=== PATIENT | female | born 1980 | race African-American/Black ===

== ENCOUNTER 2024-06-25 06:36 | Outpatient (REF) | payer OTHER, SELFPAY | END 2024-06-25 06:37 | disposition home or self-care (01) | LOC: HO.UMASIMG 06:36 | PROVIDERS: Visit Provider Family Medicine | DX: Z13.89 Encounter for screening for other disorder (principal) ==

== ENCOUNTER 2024-09-17 08:31 | Outpatient (REF) | payer OTHER, SELFPAY ==
--- OUTSIDE RECORDS SUMMARY | 2024-09-17 08:51 | XMS_ITS | Encounter Summary ---
Author Organization [facility] Address [address] [place] [address] Care Team Providers Care City Planner Name Role Phone Quang Arauz MD Primary Care Provider [phone] Breann Eugene MD Primary Care Provider Unavailab le Unknown Pcp, Non Rmg Primary Care Provider Unava ilable Encounter Details Date Type Department Care Team ([facility] st Contact Info) Description 01/18/2017 Orders Only [facility] Adult Medicine [address] [place] [phone] Quang Arauz MD [address] [place] [id number] Social History Tobacco Use Types Packs/Day Years Used Date Smoking Tobacco: Never Smokeless Tobacco: Never Alcohol Use Standard Drinks/Week Comments No 0 (1 standard drink = 0.6 oz pur e alcohol) Comments No Sex and Gender Information Value Date Recorded Sex Assigned at Not on file Legal Sex Female 3:16 PM EDT Gender Identity Not on file Sexual Orientation Not on file documented as of this encounter Plan of Treatment Not on file documented as of this encounter Procedures * Due to [place] state law, this organization might not be sharing negative HIV tests. Procedure Name Priority Date/Time Associated Diagnosis Comments ERYTHROCYTE SEDIMENTATION RATE (ESR) Routine 01/18/2017 10:38 AM EDT Arthralgia, unspecified joint CBC INCLUDES DIFFERENTIAL AND PLATELET COUNT Routine 01/18/2017 10:38 AM EDT Arthralgia, unspecified joint COMPREHENSIVE METABOLIC PANEL WITH GFR Routine 01/18/2017 10:38 AM EDT Arthralgia, unspecified joint BORRELIA BURGDORFERI AB (LYME), EIA WITH REFLEX IGG, IGM WB Routine 01/18/2017 10:36 AM EDT Arthralgia, unspecified joint RHEUMATOID FACTOR, SERUM Routine 017 10:36 AM EDT Arthralgia, unspecified joint C-REACTIVE PROTEIN (CRP) - INFLAMMATION Routine 01/18/2017 10:36 AM EDT Arthralgia, unspecified joint FELIZ SCREEN IFA W/REFLEX TO TITER/PATTERN IFA Routine 01/18/2017 10:36 AM EDT Arthralgia, unspecified joint CYCLIC CITRULLINATEDPEPTIDE CCP AB IGG Routine 01/18/2017 10:36 AM EDT Arthralgia, unspecified joint documented in this encounter Results * Due to [place] state law, this organization might not be sharing negative HIV tests. * ERYTHROCYTE SEDIMENTATION RATE (ESR), MARLO (01/18/2017 10:38 AM EDT) Sedimentation Rate Diandraren (ESR) 10 0 - 20 mm/hr [facility] 01/18/2017 10:3 8 AM EDT 01/18/2017 10:38 AM EDT Narrative [facility] - 01/18/2017 1:47 PM EDT Patient is not fasting Patient's primary care provider is: ??N/A Testing performed at: [facility], [address] [place] [address], [id number], Blueprint Machine Operator: Silvia Houston M.D. us Quang Arauz MD LAB SAME DAY RESULT Final Resu lt [address] [address] DIRECTOR SILVIA HOUSTON M.D. * COMPREHENSIVE METABOLIC PANEL WITH GFR (01/18/2017 10:38 AM EDT) Glucose 94 65 - 99 mg/dl [facility] Urea Nitrogen Blood (BUN) 12 7 - 25 mg/dL [facility] Creatinine 0.85 0.50 - 1.16 mg/dL [facility] Sodium 140 136 - 145 mmo/L [facility] Potassium 4.6 3.5 - 5.3 mmol/L [facility] Chloride 103 98 - 107 mmo/L [facility] Calcium 9.3 8.5 - 10.4 mg/dL [facility] Protein Total (Serum) 7.1 6.0 - 8.3 g/dL [facility] Albumin 4.3 3.5 - 5.2 g/dL [facility] Globulin 3 2 - 4 G/DL [facility] Bilirubin Total 0.35 0.00 - 1.20 mg/dL [facility] Alkaline phosphatase 57 33 - 130 U/L [facility] AST (SGOT) 14 <38 U/L [facility] ALT (SGPT) 10 <47 U/L [facility] Carbon dioxide 29 23 - 33 mmol/L [facility] GFR 79 >60 ml/min [facility] Comment:If the patient is Af rican Faroese, please multiply result by 1.210 01/18/2017 10:3 8 AM EDT 01/18/2017 10:38 AM EDT Narrative [facility] - 01/18/2017 12:05 PM EDT Patient is not fasting Patient's primary care provider is: ??N/A Testing performed at: [facility], [address] [place] [address], [id number], Blueprint Machine Operator: Silvia Houston M.D. us Quang Arauz MD LABORATORY Final Result [address] [address] DIRECTOR SILVIA HOUSTON M.D. * (ABNORMAL) CBC INCLUDES DIFFERENTIAL AND PLATELET COUNT (01/18/2017 10:38 AM EDT) WBC 4.8 3.8 - 10.8 K/uL [facility] Neutrophils # 1.7 1.5 - 7.8 K/uL [facility] Immature Granulocytes # 0.01 0.00 - 0.07 K/uL [facility] Comment:Cells included in IM M GRANS # : Metamyelocytes, Myelocytes and Promyelocytes. Lymphocytes # 2.6 0.9 - 3.9 K/uL [facility] Monocytes # 0.4 0.2 - 1.0 K/uL [facility] Eosinophils # 0.1 0.0 - 0.5 K/uL [facility] Basophils # 0.0 0.0 - 0.2 K/uL [facility] Neutrophils % 36.5 % [facility] Immature Granulocytes % 0.20 % [facility] Comment:Cells included in IM M GRANS % : Metamyelocytes, Myelocytes and Promyelocytes. Lymphocytes % 53.8 % [facility] Monocytes % 7.4 % [facility] Eosinophils % 1.5 % [facility] Basophils % 0.6 % [facility] RBC 4.28 3.80 - 5.10 M/uL [facility] Hemoglobin 11.6(L) 11.7 - 15.5 g/dL [facility] Hematocrit 37.8 35.0 - 45.0 % [facility] MCV 88.3 80.0 - 100.0 fl [facility] MCH 27.1 27.0 - 33.0 pg [facility] MCHC 30.7(L) 32.0 - 36.0 g/dL [facility] RDW 13.1 11.0 - 15.0 % [facility] PLT 261 140 - 400 K/uL [facility] 01/18/2017 10:3 8 AM EDT 01/18/2017 10:38 AM EDT Narrative [facility] - 01/18/2017 11:48 AM EDT Patient is not fasting Patient's primary care provider is: ??N/A Testing performed at: [facility], [address] [place] [address], [id number], Blueprint Machine Operator: Silvia E. Houston M.D. us Quang Arauz MD LAB SAME DAY RESULT Final Resu lt [facility] [address] [place] [address] DIRECTOR SILVIA HOUSTON M.D. * FELIZ SCREEN IFA W/REFLEX TO TITER/PATTERN IFA (01/18/2017 10:36 AM EDT) FELIZ IFA NEGATIVE NEGATIVE [facility] Comment: FELIZ IFA is a first line screen for detecting the presence of up to approximately 150 autoantibodies in various autoimmune diseases. A negative FELIZ IFA result suggests FELIZ-associated autoimmune diseases are not present at this time. Visit Physician FAQs for interpretation of all antibodies in the [place], prevalence, and association with diseases at http://[employer]/ faq/[email or web address] 01/18/2017 10:3 6 AM EDT 01/18/2017 1:52 PM EDT Narrative Resulting Agency Comment [id number] Quang Arauz MD LABORATORY Final Result Performing Organization Address [facility] Co de Phone Number [facility] [address] [place] [address] * CYCLIC CITRULLINATEDPEPTIDE CCP AB IGG (01/18/2017 10:36 AM EDT) Pathologist [facility] CCP Ab, IgG <16 UNITS [facility] Comment: Reference Range Negative: ?<20 Weak Positive: ? 20-39 Moderate Positive: ?? 40-59 Strong Positive: ? >59 01/18/2017 10:3 6 AM EDT 01/18/2017 1:52 PM EDT Narrative Resulting Agency Comment [id number] Quang Arauz MD LABORATORY Final Result Performing Organization Address City/[facility]/ZIP Co de Phone Number [facility] [address] [place] [address] * RHEUMATOID FACTOR, SERUM (01/18/2017 10:36 AM EDT) Pathologist [facility] Rheumatoid Factor (Quant) 8 <14 IU/mL [facility] 01/18/2017 10:3 6 AM EDT 01/18/2017 1:52 PM EDT Narrative Resulting Agency Comment [id number] Quang Arauz MD LABORATORY Final Result [facility] [address] [place] [address] * BORRELIA BURGDORFERI AB (LYME), EIA WITH REFLEX IGG, IGM WB (01/18/2017 10:36 AM EDT) Borrelia burgdorferi Ab <0.90 index [facility] Comment: ? Index ?Interpretation ? ----- ? < 0.90 ? Negative ? 0.90-1.09 ?Equivocal ? > 1.09 ? Positive As recommended by the Food and Drug Administration (FDA), all samples with positive or equivocal results in a Borrelia burgdorferi antibody screen will be tested using a blot method. Positive or equivocal screening test results should not be interpreted as truly positive until verified as such using a supplemental assay (e.g., B. burgdorferi blot). The screening test and/or blot for B. burgdorferi antibodies may be falsely negative in early stages of Lyme disease, including the period when erythema migrans is apparent. 01/18/2017 10:3 6 AM EDT 01/18/2017 1:52 PM EDT Narrative Resulting Agency Comment [id number] us Quang Arauz MD LABORATORY Final Result Performing Organization Address City/[facility] Co de Phone Number [facility] [address] [place] [address] * C-REACTIVE PROTEIN (CRP) - INFLAMMATION (01/18/2017 10:36 AM EDT) C reactive protein 0.15 <0.80 mg/dL [facility] Comment: Please be advised that patients taking Carboxypenicillins may exhibit falsely decreased C-Reactive Protein levels due to an analytical interference in this assay. 01/18/2017 10:3 6 AM EDT 01/18/2017 1:52 PM EDT Narrative Resulting Agency Comment [id number] Quang Arauz MD LABORATORY Final Result Performing Organization Address [facility] Co de Phone Number [facility] [address] [place] [address] documented in this encounter Visit Diagnoses Diagnosis Arthralgia, unspecified joint documented in this encounter Additional Health Concerns Infection Onset Date Last Indicated Resolved Time COVID-19 Rule-Out 01/18/2021 01/18/2021 01/19/2021 11:08 AM EDT documented as of this encounter Care Teams City Planner Relationship Specialty Start Date End Date Quang Arauz MD [address] [place] [id number] PCP - General Internal Medicine 10/04/16 06/22/17 Breann Eugene MD [address] [place] [id number] PCP - General Family Medicine 06/23/17 07/04/21 Unknown Pcp, Non Rmg PCP - General 07/05/21 03/10/22 documented as of this encounter
--- OUTSIDE RECORDS SUMMARY | 2024-09-17 08:52 | XMS_ITS | Encounter Summary ---
Author Organization [facility] Address [address] [place] [address] Care Team Providers Care Staff Physical Therapy Assistant Name Role Phone Breann Eugene MD Primary Care Provider Unavailab le Unknown Pcp, Non Rmg Primary Care Provider Unava ilable Reason for Visit * Reason Comments Mammogram Encounter Details Date Type Department Care Team (Late st Contact Info) Description 04/15/2019 Telephone [facility] Adult Medicine [address] [place] [phone] Breann Eugene MD Mammogram Social History Tobacco Use Types Packs/Day Years [...] on file documented as of this encounter Miscellaneous Notes * Telephone Encounter - Martine Whalen - 04/15/2019 12:00 PM EST Pt requesting order for mammogram. Please advise. documented in this encounter Plan of Treatment Not on file documented as of this encounter Visit Diagnoses Not on filedocumented in this encounter Additional Health Concerns Infection Onset Date Last Indicated Resolved Time COVID-19 Rule-Out 01/18/2021 01/18/2021 01/19/2021 11:08 AM EDT documented as of this encounter Care Teams Staff Physical Therapy Assistant Relationship Specialty Start Date End Date rBeann Eugene MD PCP - General Family Medicine 06/23/17 07/04/21 Unknown Pcp, Non Rmg PCP - General 07/05/21 03/10/22 documented as of this encounter
--- OUTSIDE RECORDS SUMMARY | 2024-09-17 08:52 | XMS_ITS | Encounter Summary ---
Author Organization [facility] Address [address] [place] [address] Care Team Providers Care Medical Sales Associate Name Role Phone Unavailable Primary Care Provider Unavailabl e Reason for Visit * Reason Comments Follow Up Encounter Details Date Type Department Care Team (Late st Contact Info) Description 08/07/2022 Telephone [facility] [address] [address] Carolin Holloway, RN [address] [place] [phone] Follow Up Social History Tobacco Use Types Packs/Day Years [...] encounter Miscellaneous Notes * Telephone Encounter - Carolin Holloway RN - 08/07/2022 4:03 PM EDT Patient calling back as missed call from provider on 08-07 regarding e-derm consult information fromderm provider shared w/patient and states comfortable w/information plan and rx-see other note Fyi provider documented in this encounter Plan of Treatment Not on file documented as of this encounter Visit Diagnoses Not on filedocumented in this encounter
--- OUTSIDE RECORDS SUMMARY | 2024-09-17 08:52 | XMS_ITS | Encounter Summary ---
Author Organization [facility] Address [address] [place] [address] Care Team Providers Care Fish Trapper Name Role Phone Breann Eugene MD Primary Care Provider Unavailab le Unknown Pcp, Non Rmg Primary Care Provider Unava ilable Encounter Details Date Type Department Care Team (Late st Contact Info) Description 03/12/2018 Orders Only [facility] Adult Medicine [address] [place] [phone] Shahana Fraser NP Medications Social History Tobacco Use Types Packs/Day Years [...] of this encounter Procedures * Due to [place] state law, this organization might not be sharing negative HIV tests. Procedure Name Priority Date/Time Associated Diagnosis Comments URINALYSIS DIP W/ REFLEX TO MICROSCOPIC+CULTURE Routine 03/12/2018 3:16 PM EDT Fever, unspecified fever cause STREP GROUP A AG, RAPID, WITHOUT REFLEX (OBTAIN IN [facility] LAB ONLY!!!) Routine 03/12/2018 3:16 PM EDT Fever, unspecified fever cause CULTURE, URINE, ROUTINE Routine 03/12/2018 3:16 PM EDT STREPTOCOCCUS, GROUP A CULTURE Routine 03/12/2018 3:16 PM EDT Fever, unspecified fever cause MONONUCLEOSIS SCREEN (HETEROPHILE) Routine 03/12/2018 3:16 PM EDT Fever, unspecified fever cause C-REACTIVE PROTEIN (CRP) - INFLAMMATION Routine 03/12/2018 3:16 PM EDT Fever, unspecified fever cause ERYTHROCYTE SEDIMENTATION RATE (ESR) Routine 03/12/2018 3:16 PM EDT Fever, unspecified fever cause CBC INCLUDES DIFFERENTIAL AND PLATELET COUNT Routine 03/12/2018 3:16 PM EDT Fever, unspecified fever cause URINALYSIS, MICROSCOPIC WITH REFLEX CULTURE Routine 03/12/2018 3:16 PM EDT HEPATIC FUNCTION PANEL (ALT,AST,ALK PH,BILI'S,TP,ALB) Routine 03/12/2018 3:16 PM EDT Fever, unspecified fever cause BASIC METABOLIC PANEL WITH (GFR) Routine 03/12/2018 3:16 PM EDT Fever, unspecified fever cause BORRELIA BURGDORFERI AB (LYME), EIA WITH REFLEX IGG, IGM WB Routine 03/12/2018 3:15 PM EDT Fever, unspecified fever cause documented in this encounter Results * Due to [place] state law, this organization might not be sharing negative HIV tests. * (ABNORMAL) CULTURE, URINE, ROUTINE (03/12/2018 3:16 PM EDT) [place] count (Urine) >10,000-<50,00 0 CFU/ml [facility] Bacteria culture (Urine) Mixed Culture, 3 or more organisms present. Repeat if Clinically Indicated.(A) No Growth [facility] 03/12/2018 3:16 PM EDT 03/12/2018 3:16 PM EDT Narrative [facility] - 03/14/2018 8:53 AM EDT Patient's primary care provider is: ??N/A Testing performed at: [facility], [address] [place] [address], [id number], Fruit Loader Machine Operator: Jose R Sierra MD Shahana Fraser NP LABORATORY Final Result Performing Organization Address [facility] de Phone Number [address] [address] DIRECTOR Jose R Sierra MD * (ABNORMAL) URINALYSIS, MICROSCOPIC WITH REFLEX CULTURE (03/12/2018 3:16 PM EDT) WBC (Urine) 5-9(A) NONE SEEN /HPF [facility] RBC (Urine Sed) 2-4(A) NONE SEEN /HPF [facility] Epithelial cells (Urine sed) FEW NONE SEEN /LPF [facility] Casts (Urine sed) NONE SEEN NONE SEEN /LPF [facility] Crystals (Urine sed) NONE SEEN NONE SEEN /HPF [facility] Bacteria (Urine) TRACE(A) NONE SEEN /HPF [facility] 03/12/2018 3:16 PM EDT 03/12/2018 3:16 PM EDT Narrative [facility] - 03/12/2018 3:54 PM EDT Patient's primary care provider is: ??N/A Testing performed at: [facility], [address] [place] [address], [id number], Fruit Loader Machine Operator: Jose R Sierra MD Shahana Fraser NP LABORATORY Final Result Performing Organization Address [facility] de Phone Number [address] [address] DIRECTOR Jose R Sierra MD * STREP GROUP A AG, RAPID, WITHOUT REFLEX (OBTAIN IN [facility] LAB ONLY!!!) (03/12/2018 3:16 PM EDT) Streptococcus pyogenes Ag (Throat) Negative for Gr A NEG FOR GR. A STREP [facility] 03/12/2018 3:16 PM EDT 03/12/2018 3:16 PM EDT Narrative [facility] - 03/12/2018 3:35 PM EDT GRP A CULTURE, ??SPECIMEN SOURCE: ??THROAT Patient's primary care provider is: ??N/A Testing performed at: [facility], [address] [place] [address], [phone], Fruit Loader Machine Operator: Jose R Sierra MD Shahana Fraser CONTROL SYSTEM COMPUTER SCIENTIST LAB SAME DAY RESULT Final Resul t [address] [address] DIRECTOR Jose R Sierra MD * (ABNORMAL) URINALYSIS DIP W/ REFLEX TO MICROSCOPIC+CULTURE (03/12/2018 3:16 PM EDT) Color (Urine) Yellow Yellow [facility] Clarity (Urine) Clear Clear [facility] Glucose (Urine) Negative Negative [facility] Bilirubin (Urine) Negative Negative [facility] Ketones (Urine) Negative Negative [facility] Specific gravity (Urine) 1.015 1.005 - 1.030 [facility] Erythrocytes (Urine) Trace-lysed( A) Negative [facility] pH (Urine) 6.0 5.0 - 8.0 [facility] Protein (Urine) Negative Negative [facility] Urobilinogen (Urine) 1.0 E.U./dL 0-1 E.U./dL [facility] Nitrite (Urine) Negative Negative [facility] Leukocyte esterase (Urine) 1+(A) Negative [facility] 03/12/2018 3:16 PM EDT 03/12/2018 3:16 PM EDT Narrative [facility] - 03/12/2018 3:53 PM EDT Patient's primary care provider is: ??N/A Testing performed at: [facility], [address] [place] [address], [phone], Fruit Loader Machine Operator: Jose R Sierra MD us Shahana Fraser CONTROL SYSTEM COMPUTER SCIENTIST LABORATORY Final Result Performing Organization Address [facility] Co de Phone Number [address] [address] DIRECTOR Jose R Sierra MD * (ABNORMAL) ERYTHROCYTE SEDIMENTATION RATE (ESR), [place] (03/12/2018 3:16 PM EDT) Sedimentation Rate [place] (ESR) 23(H) 0 - 20 mm/hr [facility] 03/12/2018 3:16 PM EDT 03/12/2018 3:16 PM EDT Narrative [facility] - 03/12/2018 5:50 PM EDT Patient's primary care provider is: ??N/A Testing performed at: [facility], [address] [place] [address], [phone], Fruit Loader Machine Operator: Jose R Sierra MD us Shahana Fraser NP LAB SAME DAY RESULT Final Resul t Performing Organization Address [facility] de Phone Number [address] [address] DIRECTOR Jose R Sierra MD * MONONUCLEOSIS SCREEN (HETEROPHILE) (03/12/2018 3:16 PM EDT) MONOTEST Negative Negative [facility] 03/12/2018 3:16 PM EDT 03/12/2018 3:16 PM EDT Narrative [facility] - 03/12/2018 3:56 PM EDT Patient's primary care provider is: ??N/A Testing performed at: [facility], [address] [place] [address], [address], Fruit Loader Machine Operator: Jose R Sierra MD us Shahana Fraser CONTROL SYSTEM COMPUTER SCIENTIST LAB SAME DAY RESULT Final Resul t Performing Organization Address [facility] Co de Phone Number [address] [address] DIRECTOR Jose R Sierra MD * HEPATIC FUNCTION PANEL (ALT,AST,ALK PH,BILI'S,TP,ALB) (03/12/2018 3:16 PM EDT) Albumin 4.5 3.5 - 5.2 g/dL [facility] Bilirubin Total 0.27 0.00 - 1.20 mg/dL [facility] Bilirubin Direct <0.20 0.00 - 0.30 mg/dL [facility] Alkaline phosphatase 62 33 - 130 U/L [facility] AST (SGOT) 13 <38 U/L [facility] ALT (SGPT) 12 <47 U/L [facility] Protein Total (Serum) 7.3 6.0 - 8.3 g/dL [facility] Globulin 3 2 - 4 G/DL [facility] 03/12/2018 3:16 PM EDT 03/12/2018 3:16 PM EDT [facility] - 03/12/2018 5:09 PM EDT Patient's primary care provider is: ??N/A Testing performed at: [facility], [address] [place] [address], [phone], Fruit Loader Machine Operator: Jose R Sierra MD Shahana Fraser NP LABORATORY Final Result Performing Organization Address [facility]/State/ZIP Co de Phone Number [address] [address] DIRECTOR Jose R Sierra MD * (ABNORMAL) C-REACTIVE PROTEIN (CRP) - INFLAMMATION (03/12/2018 3:16 PM EDT) C reactive protein 29.5(H) 0.0 - 8.0 mg/L [facility] 03/12/2018 3:16 PM EDT 03/12/2018 3:16 PM EDT [facility] - 03/12/2018 5:09 PM EDT Patient's primary care provider is: ??N/A Testing performed at: [facility], [address] [place] [address], [address], Fruit Loader Machine Operator: Jose R Sierra MD Shahana Fraser NP LABORATORY Final Result Performing Organization Address [facility] de Phone Number [address] [address] DIRECTOR Jose R Sierra MD * STREPTOCOCCUS, GROUP A CULTURE (03/12/2018 3:16 PM EDT) Streptococcus pyogenes (Group A) Negative for Gr A NEG FOR GR. A STREP [facility] 03/12/2018 3:16 PM EDT 03/12/2018 3:16 PM EDT Narrative [facility] - 03/14/2018 8:57 AM EDT GRP A CULTURE, ??SPECIMEN SOURCE: ??THROAT Patient's primary care provider is: ??N/A Testing performed at: [facility], [address] [place] [address], [address], Fruit Loader Machine Operator: Jose R Sierra MD Shahana Fraser NP LABORATORY Final Result Performing Organization Address [facility] de Phone Number [address] [address] DIRECTOR Jose R Sierra MD * (ABNORMAL) CBC INCLUDES DIFFERENTIAL AND PLATELET COUNT (03/12/2018 3:16 PM EDT) WBC 6.7 3.8 - 10.8 K/uL [facility] Neutrophils # 5.1 1.5 - 7.8 K/uL [facility] Immature Granulocytes # 0.01 0.00 - 0.07 K/uL [facility] Comment:Cells included in IM M GRANS # : Metamyelocytes, Myelocytes and Promyelocytes. Lymphocytes # 0.8(L) 0.9 - 3.9 K/uL [facility] Monocytes # 0.6 0.2 - 1.0 K/uL [facility] Eosinophils # 0.0 0.0 - 0.5 K/uL [facility] Basophils # 0.0 0.0 - 0.2 K/uL [facility] Neutrophils % 76.9 % [facility] Immature Granulocytes % 0.20 % [facility] Comment:Cells included in IM M GRANS % : Metamyelocytes, Myelocytes and Promyelocytes. Lymphocytes % 12.6 % [facility] Monocytes % 9.6 % [facility] Eosinophils % 0.5 % [facility] Basophils % 0.2 % [facility] RBC 4.20 3.80 - 5.10 M/uL [facility] Hemoglobin 11.3(L) 11.7 - 15.5 g/dL [facility] Hematocrit 36.7 35.0 - 45.0 % [facility] MCV 87.4 80.0 - 100.0 fl [facility] MCH 26.9(L) 27.0 - 33.0 pg [facility] MCHC 30.8(L) 32.0 - 36.0 g/dL [facility] RDW 13.4 11.0 - 15.0 % [facility] PLT 213 140 - 400 K/uL [facility] 03/12/2018 3:16 PM EDT 03/12/2018 3:16 PM EDT Narrative [facility] - 03/12/2018 3:49 PM EDT Patient's primary care provider is: ??N/A Testing performed at: [facility], [address] [place] [address], [address], Fruit Loader Machine Operator: Jose R Sierra MD us Shahana Fraser NP LAB SAME DAY RESULT Final Resul t [address] [address] DIRECTOR Jose R Sierra MD * (ABNORMAL) BASIC METABOLIC PANEL WITH (GFR) (03/12/2018 3:16 PM EDT) Glucose 110(H) 65 - 99 mg/dl [facility] Urea Nitrogen Blood (BUN) 12 7 - 25 mg/dL [facility] Creatinine 0.92 0.50 - 1.16 mg/dL [facility] Sodium 140 136 - 145 mmo/L [facility] Potassium 4.1 3.5 - 5.3 mmol/L [facility] Chloride 101 98 - 107 mmo/L [facility] Carbon dioxide 28 23 - 33 mmol/L [facility] Calcium 9.3 8.5 - 10.4 mg/dL [facility] GFR 72 >60 ml/min [facility] Comment:If the patient is Af rican Finnish, please multiply result by 1.210 03/12/2018 3:16 PM EDT 03/12/2018 3:16 PM EDT Narrative [facility] - 03/12/2018 5:09 PM EDT Patient's primary care provider is: ??N/A Testing performed at: [facility], [address] [place] [address], [phone], Fruit Loader Machine Operator: Jose R Sierra MD Shahana Fraser NP LABORATORY Final Result Performing Organization Address [facility]/State/ZIP Co de Phone Number [address] [address] DIRECTOR Jose R Sierra MD * BORRELIA BURGDORFERI AB (LYME), EIA WITH REFLEX IGG, IGM WB (03/12/2018 3:15 PM EDT) Borrelia burgdorferi Ab <0.90 index [facility] [...] the period when erythema migrans is apparent. 03/12/2018 3:15 PM EDT 03/12/2018 11:42 PM EDT Narrative Resulting Agency Comment [id number] Shahana Fraser NP LABORATORY Final Result Performing Organization Address City/State/[facility] Co de Phone Number [facility] [address] [place] [address] documented in this encounter Visit Diagnoses Diagnosis Fever, unspecified fever cause documented in this encounter Additional Health Concerns Infection Onset Date Last Indicated Resolved Time COVID-19 Rule-Out 01/18/2021 01/18/2021 01/19/2021 11:08 AM EDT documented as of this encounter Care Teams Fish Trapper Relationship Specialty Start Date End Date Breann Eugene MD PCP - General Family Medicine 06/23/17 07/04/21 Unknown Pcp, Non [facility] PCP - General 07/05/21 03/10/22 documented as of this encounter
--- OUTSIDE RECORDS SUMMARY | 2024-09-17 08:52 | XMS_ITS | Encounter Summary ---
Author Organization [facility] Address [address] [place] [address] Care Team Providers Care Parker Name Role Phone Jose R Arauz Primary Care Provider [phone] Quang Arauz MD Primary Care Provider [phone] Breann Eugene MD Primary Care Provider Unavailab le Unknown Pcp, Non [facility]mg Primary Care Provider Unava ilable Encounter Details Date Type Department Care Team (Late st Contact Info) Description 09/22/[address] [facility] Medical Records [address] [place] [id number] Jose R Arauz [address] [address] Social History Tobacco Use Types Packs/Day Years Used Date Smoking Tobacco: Never Smokeless Tobacco: Never Comments No Sex and Gender Information Value [...] documented as of this encounter Care Teams Parker Relationship Specialty Start Date End Date Jose R Arauz [address] [address] PCP - General Internal Medicine 08/01/16 10/03/16 Quang Arauz MD [address] [place] [address] PCP - General Internal Medicine 10/04/16 06/22/17 Breann Eugene MD [address] [place] [address] PCP - General Family Medicine 06/23/17 07/04/21 Unknown Pcp, Non [facility] PCP - General 07/05/21 03/10/22 documented as of this encounter
--- OUTSIDE RECORDS SUMMARY | 2024-09-17 08:52 | XMS_ITS | Data Portability ---
Author Organization [facility] [address] Address [address] [place] [address] Assessment No assessment recorded. Plan of Treatment Reminders Order Date Submit Date Provider Last Modified By Organization Details Last Modified Time Details Appointments None recorded. Lab None recorded. Referral physical therapist referral 2023 024 [email or web address] Not available 13:04:38 Procedures None recorded. Surgeries None recorded. Imaging None recorded. Medication Orders methocarbam ol 500 mg tablet 2023 024 sha [id number], [address] [facility], [place], [address], 4 20:10:07 Patient TargetsNo targets recorded. Patient Instructions Encounter Date Encounter Id Patient Instructions Last Modified By Organization Details Last Modified Time 07/10/2023 [id number] shoulder pain: care instructions sha Not available 07/10/2023 16:01:24 shoulder stretches: exercises sha Not available 07/10/2023 16:01:23 Reason for Referral Physical Therapist Referral for Strain of muscle of left shoulder Referring Physician: Josué Hamilton, Urgent Care, Encounter Date: 07/10/2023 Problems Name Problem SNOMED Code Status Onset Date Resolution Date Notes Provider Name and Address Organization Details Recorded Time Strain of muscle of left shoulder 183379821223128 05 Active 2023 [facility] [address] [place], [address] , [facility] 4 15:51:16 Problem Notes None recorded. Medical Equipment None Reported. Allergies No known drug allergies Medications Name Sig Start Date Stop Date Status Note LastModified by Organization Details LastModified Time methocarbamol 500 mg tablet Take 1 tablet every 6 hours by oral route. 2023 active Not Available Not Available Not Raymondai labroberto Tylenol 325 mg capsule Take by oral route. active Not Available Not Available No t Available Vitals Date Recorded Body height Pain severity Hilario-Bailey FACES pain rating scale Body temperature Oxygen saturation Oxygen saturation in Arterial blood by Pulse oximetry Heart rate Respiratory rate Body mass index (BMI) Body weight Systolic blood pressure Diastolic blood pressure Provider Name and Address Organization Details Last Updated DateTime 4 177.8 cm 7 97 [degF] 98 % 98 % 88 /min 18 /min 46.2 kg/m2 101244. 74 g 133 mm[Hg] 85 mm[Hg] WOJCIECH JUAREZ [facility] 15:33:45 Social History Question Answer Notes LastModified by Organizat ion Details LastModified Time Tobacco Smoking Status Never Smoker WOJCIECH [facility] [facility] 07/10/2023 15:30:45 What Is Your Level Of Alcohol Consumption? None Information not available 07/10/2023 Do You Use Any Illicit Or Recreational Drugs? No [email or web address] Information not available 07/10/2023 Have You Recently Traveled Abroad? No [email or web address] Information not available 07/10/2023 Do You Or Have You Ever Used Any Other Forms Of Tobacco Or Nicotine? No Information not available 07/10/2023 Sex: Unknown Functional Status None recorded. Mental Status None recorded. Family History Relationship Description Onset Age of this Age Resolved Age Notes LastModified by Organization Details LastModified Time Father No current problems or disability [email or web address] Not available 07/10 15:30:31 Mother No current problems or disability Not available 07/10 15:30:31 Medical History No medical history recorded. Gynecological History Statement/Question Response Date of LMP 07/10/2023 Is there any chance of ? No LMP Definite Obstetrics History GPAL:G 0 P 0 0 0 0 Past Encounters Encounter ID Performer Location Encounter Start Date Encounter Closed Date Diagnosis/Indication Diagnosis SNOMED-CT Code Diagnosis ICD10 Code Diagnosis Note [id number] [place] [address] [place] [address] 07/10/2023 15:17:31 07/10/2023 16:02:30 Strain of muscle of left shoulder [id number] S46.912A You are being diagnosed with a Shoulder Strain/Spa sm based on your exam. Do the exercises that I gave you. The following are my recommenda tions to help with your symptoms:1 . Heating pad to the back of the neck and the shoulder2. Stretch your neck and shoulder regularly3 . Try to sleep with 1 pillow and support the arm.4. It is ok to Take Tylenol with what I gave you, but not Ibuprofen5 . I advise applying some topical Aspircream I would give this a solid 1-2 weeks to start to improve. If at this time you still aren't feeling better. I would suggest a follow up visit. Please go immediatel y to the Emergency room if you develop any:1. Shortness of breath2. Coughing up blood3. Significan t chest pain4. or Dizziness. light headedness Thank you for using [facility] . Please feel free to contact us if you have any questions or concerns. Health Concerns Section Related Observation LastModified by Organization Detai ls LastModified Time None Recorded Concern Status LastModified by Organization Details LastModified Time None Recorded Advance Directives Directive None Recorded Payers Encounter Date Sequence Insurance Name Policy Number Policy Chamorro Covered Member ID Chamorro Member ID Guarantor Name 07/10/2023 1 [facility] [id number] Josafat Reis [id number] Josafat Reis Notes Date Note Type Note Provider Name and Address Organization Details Recorded Time 4 text/html ShoulderReported bypatient.source of patient informationInformation obtained from patient; Patient arrived at Urgent Care ambulatory Hand Dominance:right Location:right Quality:aching; dull Severity:mild Duration:2 days Timing:acute Context:cannot identify Aggravating Factors:ROM Associated Symptoms:no weakness; no numbness; no tingling; no swelling; no redness; no warmth; no ecchymosis Previous InjuryNo prior injury to affected body part Previous Treatmentnone Prior Imaging:none JOSUÉ HAMILTON NP [address] [place], [id number], [place] - [facility] 07/10/2023 20:13:15 OBGyn Episode No OBEpisode recorded.
--- OUTSIDE RECORDS SUMMARY | 2024-09-17 08:52 | XMS_ITS | Continuity of Care Document ---
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[place] 08/07/2022 9:45 AM EDT Office Visit [address] [phone] Megan Uribe DNP Localized papular rash (Primary Dx) 08/01/2022 9:15 AM EDT Office Visit [address] [phone] Gabby Pastor PA Acute non-recurrent frontal sinusitis (Primary Dx) 12/27/2021 11:45 AM EDT Office Visit [address] [address] Zane Cisneros MD Tension headache (Primary Dx); Occipital neuralgia of left side; Adjustment reaction with anxiety; Housing situation unstable 01/18/2021 Orders Only [address] [address] Breann Eugene MD 03/12/2020 Travel 03/12/2020 12:00 PM EDT Office Visit [address] [address] Breann Eugene MD Adjustment disorder with anxious mood (Primary Dx) 02/21/2020 3:30 PM EDT Office Visit [address] [place] [phone] Hollie Luciano, ZENIA Diarrhea, unspecified type (Primary Dx) 02/21/2020 Travel 02/21/[address] [address] Breann Eugene MD Abdominal Pain 02/11/2020 1:30 PM EDT Office Visit [address] [phone] Joanie Stephens LICSW Adjustment disorder with anxious mood 08/20/[address] [phone] Breann Eugene MD Rash 05/23/2019 10:30 AM EST Radiology [facility] Mammography [address] [place] [address] [place] [address] Breast cancer screening by mammogram 04/15/[address] [phone] Breann Eugene MD Mammogram 04/15/[address] [phone] Breann Eugene MD Neck Pain 07/05/[address] [address] Breann Eugene MD Prescription Assistance 06/14/2018 11:00 AM EST Office Visit [address] [address] Breann Eugene MD Cough (Primary Dx) 06/14/[address] [phone] Breann Eugene MD Cough 05/11/2018 11:30 AM EST Radiology [facility] Xray [address] [facility] [address] [place] [address] Fever, unspecified fever cause; Cough 05/11/2018 11:00 AM EST Office [place] [address] [place] [address] Leatha Mahoney PA Cough (Primary Dx); Fever, unspecified fever cause 05/11/[address] [address] Breann Eugene MD Fever 04/19/2018 11:15 AM EST Office Visit [address] [place] [address] Vanessa Hilario PA Left ear pain (Primary Dx) 04/18/[address] [phone] Breann Eugene MD Ear Pain (left); FYI 03/12/2018 3:30 PM EDT Radiology [address] [address] 03/12/2018 Orders Only [address] [phone] Shahana Fraser NP Medications 03/12/2018 2:20 PM EDT Office Visit [address] [phone] Shahana Fraser NP Fever, unspecified fever cause (Primary Dx) 03/12/[address] [phone] Breann Eugene MD Chest Pain 07/10/[address] [place] [address] [facility] [address] [place] [phone] Shahana Fraser NP Denial 06/23/2017 3:00 PM EST Office Visit [address] [phone] Shahana Fraser NP Chronic pain of left knee (Primary Dx) 03/28/2017 2:45 PM EST Office Visit [address] [phone] Quang Arauz MD Pain in left buttock (Primary Dx); Tick bite, initial encounter 03/28/[address] [address] Quang Arauz MD Tick bite 03/02/[address] [phone] Quang Arauz MD Letter/form Request 02/01/[address] [address] Quang Arauz MD Results 01/18/2017 Orders Only [address] [address] Quang Arauz MD 01/18/2017 10:15 AM EDT Office Visit [address] [phone] Quang Arauz MD Arthralgia, unspecified joint (Primary Dx) 01/16/[address] [address] Quang Arauz MD Patient Questions 01/16/[address] [phone] Quang Arauz MD Joint Pain 01/16/[address] [address] Quang Arauz MD Knee Pain 11/15/2016 Telephone [facility] [address] [place] [address] 2nd [address] [place] [address] Michael Amaya DPM Information (ORTHOTIC info) 11/07/2016 10:15 AM EDT Consult (Initial) [facility] Orthopedic Surgery [address] [place] [address] Manny Justin DO Patellofemoral arthralgia of left knee (Primary Dx); Left knee pain, unspecified chronicity; Chondromalacia patellae, left 11/07/2016 3:45 PM EDT Consult (Initial) [facility] [address] [facility] 2nd Floor [address] [place] [address] Michael Amaya DPM Pronation deformity of both feet (Primary Dx); Pes planus of both feet; Pain in both feet; Right knee pain, unspecified chronicity 11/04/2016 Telephone [facility] [address] [place] [phone] Quang Arauz MD Results (x ray finger) 11/03/2016 5:45 PM EDT Radiology [facility] [address] [place] [address] Pain of finger of right hand 11/02/2016 9:45 AM EDT Office Visit [address] [phone] Quang Arauz MD Pain of finger of right hand (Primary Dx); Left knee pain, unspecified chronicity 10/05/2016 Telephone [facility] [address] [place] [phone] Quang Arauz MD Change of PCP 09/29/2016 Orders Only [address] [address] Breann Eugene MD 09/29/2016 9:00 AM EDT CPE - Comprehensive Physical Exam [address] [address] Breann Eugene MD Routine history and physical examination of adult (Primary Dx); Lipid screening; Skin lesion of right arm 09/22/2016 Abstract [facility] Medical Records [address] [place] [address] Breann Eugene MD 09/22/2016 Abstract [facility] Medical Records [address] [place] [address] Jose R Arauz 08/11/[address] [address] Breann Eugene MD Return Call 08/11/2016 8:45 AM EDT Radiology [facility] Xray [address] [place] [address] 08/11/2016 Orders Only [address] [address] Breann Eugene MD 08/10/2016 10:15 AM EDT Office Visit [address] [address] Breann Eugene MD Left knee pain, unspecified chronicity (Primary Dx); Amenorrhea 08/24/2015 Minor Procedure/Test UNKOWAmara JONES UNSPEC Unknown Pcp, Non Rmg 08/19/2015 Orders Only INTERNAL MED Jose R Sims 10/07/2014 Office Visit INTERNAL MED UNSPEC Leelee Larios NP 08/19/2014 CPE - Comprehensive Physical Exam INTER[facility] MED UNSPEC Jose R Arauz 06/17/2011 Consult (Initial) [facility] UNSPEC Quang Fry Allergies No known active allergies Medications No known medications Active Problems Problem Noted Date Diagnosed Date Adjustment disorder with anxious mood 02/11/2020 Obesity (BMI 35.0-39.9 without comorbidity) 07/2017 Chronic pain of left knee 06/24/2017 Immunizations Name Administration Dates Next Due COVID-19, mRNA (Moderna Pre Fall 2022) Monovalent, 100 mcg/0.5 ml or 50 mcg/0.25 ml dose 04/04/2021 COVID-19, mRNA (Pfizer Pre F 2022) Monovalent, 30 mcg/0.3 ml 09/09/2020,08/19/2020 Tdap 01/05/2016 Tdap(Adacel) 08/21/2015 Family History Medical History Relation Name Comments Cancer - Breast Maternal grandmother Hypertension Mother Relation Name Status Comments Maternal grandmother Mother Social History Smoking Status as of 09/17/2024 Tobacco Use Types Packs/Day Years Used Date Smoking Tobacco: Never Assessed Intimate Partner Violence Answer Date R ecorded Fear of Current or Ex-Partner Not on file Emotionally Abused Not on file 01/22/2023 Physically Abused Not on file 01/22/2023 Sexually Abused Not on file 01/22/2023 Feel Safe at Home Not on file 01/22/2023 Sex and Gender Information Value Date Recorded Sex Assigned at Not on file Legal Sex Female 3:16 PM EDT Gender Identity Not on file Sexual Orientation Not on file Last Filed Vital Signs Vital Sign Reading Time Taken Comments Blood Pressure 124/83 08/07/2022 9:42 AM EDT Pulse 94 08/07/2022 9:42 AM EDT Temperature 36.8 ??C (98.2 ??F) 08/07/2022 9:42 AM ED T Respiratory Rate 16 08/01/2022 9:04 AM EDT Oxygen Saturation 100% 08/07/2022 9:42 AM EDT Inhaled Oxygen Concentration - - Weight 130 kg (287 lb) 06/23/2017 3:26 PM EST Height 177.8 cm (5' 10 ) 09/29/2016 9:08 AM EDT Body Mass Index 41.18 09/29/2016 9:08 AM EDT Plan of Treatment Not on file Procedures * Due to [place] state law, this organization might not be sharing negative HIV tests. Procedure Name Priority Date/Time Associated Diagnosis Comments SARS COV 2 RNA(COVID 19), QUALITATIVE NAAT Routine 01/18/2021 9:49 AM EDT Contact with and (suspected) exposure to covid-19 CBC (INCLUDES DIFF/PLT) (ON-SITE) STAT (All results called to provider) 02/21/2020 3:38 PM EDT Diarrhea, unspecified type HEPATIC FUNCTION PANEL (ALT,AST,ALK PH,BILI'S,TP,ALB) STAT (All results called to provider) 02/21/2020 3:38 PM EDT Diarrhea, unspecified type VENIPUNCTURE STAT (All results called to provider) 02/21/2020 3:38 PM EDT Diarrhea, unspecified type MAMMOGRAM SCREENING TOMOSYNTHESIS, BILATERAL Routine 05/23/2019 10:59 AM EST Breast cancer screening by mammogram XRAY CHEST, 2 VIEWS, PA & LATERAL (DX: COUGH R05.9/ 786.2) FC Routine 05/11/2018 11:22 AM EST Fever, unspecified fever cause Cough XRAY CHEST, 2 VIEWS, PA & LATERAL FC Routine 03/12/2018 3:35 PM EDT Fever, unspecified fever cause CULTURE, URINE, ROUTINE Routine 03/12/20 18 3:16 PM EDT URINALYSIS, MICROSCOPIC WITH REFLEX CULTURE Routine 03/12/2018 3:16 PM EDT STREP GROUP A AG, RAPID, WITHOUT REFLEX (OBTAIN IN [facility] LAB ONLY!!!) Routine 03/12/2018 3:16 PM EDT Fever, unspecified fever cause URINALYSIS DIP W/ REFLEX TO MICROSCOPIC+CULTURE Routine 03/12/2018 3:16 PM EDT Fever, unspecified fever cause ERYTHROCYTE SEDIMENTATION RATE (ESR) Routine 03/12/2018 3:16 PM EDT Fever, unspecified fever cause MONONUCLEOSIS SCREEN (HETEROPHILE) Routine 03/12/2018 3:16 PM EDT Fever, unspecified fever cause HEPATIC FUNCTION PANEL (ALT,AST,ALK PH,BILI'S,TP,ALB) Routine 03/12/2018 3:16 PM EDT Fever, unspecified fever cause C-REACTIVE PROTEIN (CRP) - INFLAMMATION Routine 03/12/2018 3:16 PM EDT Fever, unspecified fever cause STREPTOCOCCUS, GROUP A CULTURE Routine 03/12/2018 3:16 PM EDT Fever, unspecified fever cause CBC INCLUDES DIFFERENTIAL AND PLATELET COUNT Routine 03/12/2018 3:16 PM EDT Fever, unspecified fever cause BASIC METABOLIC PANEL WITH (GFR) Routine 03/12/2018 3:16 PM EDT Fever, unspecified fever cause BORRELIA BURGDORFERI AB (LYME), EIA WITH REFLEX IGG, IGM WB Routine 03/12/2018 3:15 PM EDT Fever, unspecified fever cause ERYTHROCYTE SEDIMENTATION RATE (ESR) Routine 01/18/2017 10:38 AM EDT Arthralgia, unspecified joint COMPREHENSIVE METABOLIC PANEL WITH GFR Routine 01/18/2017 10:38 AM EDT Arthralgia, unspecified joint CBC INCLUDES DIFFERENTIAL AND PLATELET COUNT Routine 01/18/2017 10:38 AM EDT Arthralgia, unspecified joint FELIZ SCREEN IFA W/REFLEX TO TITER/PATTERN IFA Routine 01/18/2017 10:36 AM EDT Arthralgia, unspecified joint CYCLIC CITRULLINATEDPEPTIDE CCP AB IGG Routine 01/18/2017 10:36 AM EDT Arthralgia, unspecified joint RHEUMATOID FACTOR, SERUM Routine 017 10:36 AM EDT Arthralgia, unspecified joint BORRELIA BURGDORFERI AB (LYME), EIA WITH REFLEX IGG, IGM WB Routine 01/18/2017 10:36 AM EDT Arthralgia, unspecified joint C-REACTIVE PROTEIN (CRP) - INFLAMMATION Routine 01/18/2017 10:36 AM EDT Arthralgia, unspecified joint XRAY FINGER(S) MIN 2 VWS - RIGHT Routine 11/03/2016 5:40 PM EDT Pain of finger of right hand CBC (H/H, RBC, INDICES,WBC, PLT) Routine 09/29/2016 9:39 AM EDT Routine history and physical examination of adult BASIC METABOLIC PANEL WITH (GFR) Routine 09/29/2016 9:39 AM EDT Routine history and physical examination of adult LIPID PANEL WITH REFLEX TO DIRECT LDL Routine 09/29/2016 9:39 AM EDT Lipid screening XRAY KNEE FOR ORTHO - LEFT Routine 08/11 8:57 AM EDT Left knee pain, unspecified chronicity HCG, (HUMAN CHORIONIC GONADOTROPIN), URINE, QUALITATIVE (SITE - STAT ONLY) STAT (All results called to provider) 08/11/2016 8:38 AM EDT Amenorrhea EKG 08/24/2015 UNSPECIFIED DIAGNOSTIC PROCE 08/19/2015 LIPID PANEL WITH REFLEX TO DIRECT LDL Routine 08/19/2015 Results * Due to [place] state law, this organization might not be sharing negative HIV tests. * SARS COV 2 RNA(COVID 19), QUALITATIVE NAAT (01/18/2021 9:49 AM EDT) SARS-COV-2 RNA NOT DETECTED NOT DETECTED [facility] Comment: A Not Detected result means that SARS-CoV-2 RNA was not present in the specimen above the limit of detection. A Not Detected result does not rule out the possibility of COVID-19 and should not be used as the sole basis for treatment or patient management decisions. If COVID-19 is still suspected, based on exposure history together with other clinical findings, re-testing should be considered in the context of clinical observations and epidemiological data for patient management decisions. Test Method: Nucleic Acid Amplification Test including reverse slider assembler polymerase chain reaction (RT-PCR) and slider assembler mediated amplification (TMA). The test method meets the [place] Centers for Disease Control and prevention (CDC) pre departure and arrival requirement for viral test for COVID-19 dated June 18, 2020. Testing requirements for traveling may change with time. The patient is responsible for determining the test requirements for each nation while they are traveling. This test has been authorized by the FDA under an Emergency Use Authorization (EUA) for use by authorized laboratories. Please review the Fact Sheets and FDA authorized labeling available for health care providers and patients using the following websites: https://www.[employer]/home/Covid-19/HCP/QuestLDT/ fact-sheet.html https://www.[employer]/home/Covid-19/Patients/QuestLDT/ fact-sheet.html Due to the current public health emergency, [employer] is accepting samples from appropriate clinical sources collected using wide variety of swabs and transport media for COVID-19. Not detected test results derived from specimens received in non- commercially manufactured viral collection kits or those not yet authorized by FDA for COVID-19 testing should be cautiously evaluated and take extra precautions such as such as additional clinical monitoring, including collection of an additional specimen. ?? Additional information about COVID-19 can be found at the [employer] website: [email or web address]/Covid19. Anterior Nares 01/18/2021 9 :49 AM EDT 01/18/2021 12:12 PM EDT Narrative [facility] - 01/18/2021 8:32 PM EDT Patient has been notified of results by [employer] automated phone system. ?? ##NOTIFIED## Resulting Agency Comment [id number] Breann Eugene MD LABORATORY Final Result [facility] [address] [place] [address] * (ABNORMAL) CBC (INCLUDES DIFF/PLT) (ON-SITE) (02/21/2020 3:38 PM EDT) WBC 5.1 3.8 - 10.8 Thousand/u L [facility] RBC 4.01 3.80 - 5.10 Million/uL [facility] Hemoglobin 11.1(L) 11.7 - 15.5 g/dL [facility] Hematocrit 35.9 35.0 - 45.0 % [facility] MCV 89.5 80.0 - 100.0 fL [facility] MCH 27.7 27.0 - 33.0 pg [facility] MCHC 30.9(L) 32.0 - 36.0 g/dL [facility] RDW 13.1 11.0 - 15.0 % [facility] PLT 241 140 - 400 Thousand/u L [facility] MPV 12.0 7.5 - 12.5 fL [facility] Neutrophils # 2468 1500 - 7800 cells/uL [facility] Lymphocytes # 2157 850 - 3900 cells/uL [facility] Monocytes # 352 200 - 950 cells/uL [facility] Eosinophils # 102 15 - 500 cells/uL [facility] Basophils # 20 0 - 200 cells/uL [facility] Neutrophils % 48.4 % [facility] Lymphocytes % 42.3 % [facility] Monocytes % 6.9 % [facility] Eosinophils % 2.0 % [facility] Basophils % 0.4 % [facility] 02/21/2020 3:38 PM EDT 02/21/2020 6:14 PM EDT Narrative Resulting Agency Comment [id number] Hollie Luciano LEGAL DOCUMENT SPECIALIST LAB SAME DAY RESULT Final Resul t [facility] [address] [place] [address] * (ABNORMAL) HEPATIC FUNCTION PANEL (ALT,AST,ALK PH,BILI'S,TP,ALB) (02/21/2020 3:38 PM EDT) Only the most recent of2 resultswithin the time period is included. Protein Total (Serum) 6.5 6.1 - 8.1 g/dL [facility] Albumin 4.1 3.6 - 5.1 g/dL [facility] Globulin 2.4 1.9 - 3.7 g/dL (calc) [facility] Albumin/Globulin 1.7 1.0 - 2.5 (calc) [facility] Bilirubin Total 0.2 0.2 - 1.2 mg/dL [facility] Bilirubin Direct 0.1 < OR = 0.2 mg/dL [facility] Bilirubin Indirect 0.1(L) 0.2 - 1.2 mg/dL (calc) [facility] Alkaline phosphatase 50 31 - 125 U/L [facility] AST (SGOT) 13 10 - 30 U/L [facility] ALT (SGPT) 15 6 - 29 U/L [facility] 02/21/2020 3:38 PM EDT 02/21/2020 6:14 PM EDT Narrative Resulting Agency Comment [id number] us Hollie Luciano LEGAL DOCUMENT SPECIALIST LABORATORY Final Result [facility] [address] [place] [address] * (ABNORMAL) COMPREHENSIVE METABOLIC PANEL WITH GFR (02/21/2020 3:38 PM EDT) Only the most recent of2 resultswithin the time period is included. Glucose 114(H) 65 - 99 mg/dL [facility] Comment: ? Fasting reference interval For someone without known diabetes, a glucose value between 100 and 125 mg/dL is consistent with prediabetes and should be confirmed with a follow-up test. Urea Nitrogen Blood (BUN) 13 7 - 25 mg/dL [facility] Creatinine 0.98 0.50 - 1.10 mg/dL [facility] EGFR 72 > OR = 60 mL/min/1 .73m2 [facility] GFR () 83 > OR = 60 mL/min/1 .73m2 [facility] BUN/Creatinine Ratio NOT APPLICABLE 6 - 22 (calc) [facility] Sodium 138 135 - 146 mmol/L [facility] Potassium 3.9 3.5 - 5.3 mmol/L [facility] Chloride 106 98 - 110 mmol/L [facility] Carbon dioxide 27 20 - 32 mmol/L [facility] Calcium 9.4 8.6 - 10.2 mg/dL [facility] Protein Total (Serum) 6.5 6.1 - 8.1 g/dL [facility] Albumin 4.1 3.6 - 5.1 g/dL [facility] Globulin 2.4 1.9 - 3.7 g/dL (calc) [facility] Albumin/Globuli n 1.7 1.0 - 2.5 (calc) [facility] Bilirubin Total 0.2 0.2 - 1.2 mg/dL [facility] Alkaline phosphatase 50 31 - 125 U/L [facility] AST (SGOT) 13 10 - 30 U/L [facility] ALT (SGPT) 15 6 - 29 U/L [facility] 02/21/2020 3:38 PM EDT 02/21/2020 6:14 PM EDT Narrative [facility] - 02/21/2020 6:50 PM EDT Please note that this estimated GFR does not include an adjustment for the patient's height or weight, and can therefore, be viewed as reliable only for patients with heights between 60 and 72 . More precise quantification using a 24-hour urine sample or height-based algorithm is recommended for patients outside of this range of height and for those individuals with more precise needs for GFR calculation. Resulting Agency Comment [id number] us Hollie Luciano NP LABORATORY Final Result [facility] [address] [place] [address] * MAMMOGRAM SCREENING TOMOSYNTHESIS, BILATERAL FC (05/23/2019 10:59 AM EST) LETTER SENT A mammogram letter type B1 was mailed to patient Anatomical Region Laterality Modality BREAST Bilateral Mammography 05/23/2019 11:1 2 AM EST Narrative 05/23/2019 11:12 AM EST EXAMINATION: SCREENING MAMMOGRAM HISTORY: Annual screening mammography TECHNIQUE: ??Digital Bilateral, CAD, tomosynthesis and generated 2D image. COMPARISON: Baseline BREAST COMPOSITION: ??b. There are scattered areas of fibroglandular density. *#BDb#* FINDINGS: No suspicious dominant mass lesions, clustered microcalcifications, or areas of unexplained architectural distortion are seen in the breast(s). IMPRESSION: No evidence of malignancy. RECOMMENDATION: Annual screening mammography. BI-RADS: Category 1 - Negative *#B1#* RESULTS COMMUNICATED TO PATIENT: In a letter Procedure Note Malu Underwood MD - 05/23/2019 EXAMINATION: SCREENING MAMMOGRAM HISTORY: Annual screening mammography TECHNIQUE: Digital Bilateral, CAD, tomosynthesis and generated 2D image. COMPARISON: Baseline BREAST COMPOSITION: b. There are scattered areas of fibroglandular density. *#BDb#* FINDINGS: No suspicious dominant mass lesions, clustered microcalcifications, or areas of unexplained architectural distortion are seen in the breast(s). IMPRESSION: No evidence of malignancy. RECOMMENDATION: Annual screening mammography. BI-RADS: Category 1 - Negative *#B1#* RESULTS COMMUNICATED TO PATIENT: In a letter us Breann Eugene MD IMG MAMMO ORDERABLES Final Resul t * XRAY CHEST, 2 VIEWS, PA & LATERAL (DX: COUGH R05/ 786.2) FC (05/11/2018 11:22 AM EST) Anatomical Region Laterality Modality CHEST Radiographic Niya ging 05/12/2018 1:24 PM EST Narrative 05/12/2018 1:24 PM EST 2 view chest x-ray. Comparison: ??CR ??- XRAY CHEST 2 VIEWS PA ?? - 03/12/2018 03:21 PM EDT Findings: There is no consolidation or effusion. The heart size is normal. There are no acute fractures. IMPRESSION: 1. ??No consolidation or effusion Procedure Note Carmela Fairchild MD - 05/12/2018 2 view chest x-ray. Comparison: CR - XRAY CHEST 2 VIEWS PA - 03/12/2018 03:21 PM EDT Findings: There is no consolidation or effusion. The heart size is normal. There are no acute fractures. IMPRESSION: 1. No consolidation or effusion us Leatha Mahoney PA IMG XRAY NO CONTRAST ORDERABLES Final Result * XRAY CHEST, 2 VIEWS, PA & LATERAL FC (03/12/2018 3:35 PM EDT) Anatomical Region Laterality Modality CHEST Radiographic Niya ging 03/12/2018 5:05 PM EDT Narrative 03/12/2018 5:05 PM EDT 2 views of the chest. Findings: Heart size is normal. There is no consolidation. No pleural effusion is seen. Impression: No consolidation. Procedure Note Chris Isabel MD - 03/12/2018 2 views of the chest. Findings: Heart size is normal. There is no consolidation. No pleural effusion isseen. Impression: No consolidation. us Shahana Fraser LEGAL DOCUMENT SPECIALIST IMG XRAY NO CONTRAST ORDERABLES Final Result * (ABNORMAL) URINALYSIS DIP W/ REFLEX TO [...] 3:16 PM EDT 03/12/2018 3:16 PM EDT [facility] - 03/12/2018 3:53 PM EDT Patient's primary care provider is: ??N/A Testing performed at: [facility], [address] [place] [address], [id number], Transit Mix Operator: Jose R Sierra MD Shahana Fraser [facility] LABORATORY Final Result [address] [address] DIRECTOR Jose R Sierra MD * STREP GROUP A AG, RAPID, WITHOUT REFLEX (OBTAIN IN [facility] LAB ONLY!!!) (03/12/2018 3:16 PM EDT) Streptococcus pyogenes Ag (Throat) Negative for Gr A NEG FOR GR. A STREP [facility] 03/12/2018 3:16 PM EDT 03/12/2018 3:16 PM EDT [facility] - 03/12/2018 3:35 PM EDT GRP A CULTURE, ??SPECIMEN SOURCE: ??THROAT Patient's primary care provider is: ??N/A Testing performed at: [facility], [address] [place] [address], [id number], Transit Mix Operator: Jose R Sierra MD Shahana Fraser NP LAB SAME DAY RESULT Final Resul t Performing Organization Address [facility] de Phone Number [address] [address] DIRECTOR Jose R Sierra MD * (ABNORMAL) CULTURE, URINE, ROUTINE (03/12/2018 3:16 PM EDT) [place] count (Urine) >10,000-<50,00 0 CFU/ml [facility] Bacteria culture (Urine) Mixed Culture, 3 or more organisms present. Repeat if Clinically Indicated.(A) No Growth [facility] 03/12/2018 3:16 PM EDT 03/12/2018 3:16 PM EDT [facility] - 03/14/2018 8:53 AM EDT Patient's primary care provider is: ??N/A Testing performed at: [facility], [address] [place] [address], [id number], Transit Mix Operator: Jose R Sierra MD Shahana Fraser NP LABORATORY Final Result Performing Organization Address [facility] de Phone Number [address] [address] DIRECTOR Jose R Sierra MD * STREPTOCOCCUS, GROUP A CULTURE (03/12/2018 3:16 PM EDT) Streptococcus pyogenes (Group A) Negative for Gr A NEG FOR GR. A STREP [facility] 03/12/2018 3:16 PM EDT 03/12/2018 3:16 PM EDT [facility] - 03/14/2018 8:57 AM EDT GRP A CULTURE, ??SPECIMEN SOURCE: ??THROAT Patient's primary care provider is: ??N/A Testing performed at: [facility], [address] [place] [address], [address], Transit Mix Operator: Jose R Sierra MD Shahana Fraser LEGAL DOCUMENT SPECIALIST LABORATORY Final Result Performing Organization Address [facility] de Phone Number [address] [address] DIRECTOR Jose R Sierra MD * MONONUCLEOSIS SCREEN (HETEROPHILE) (03/12/2018 3:16 PM EDT) [facility] MONOTEST Negative Negative [facility] 03/12/2018 3:16 PM EDT 03/12/2018 3:16 PM EDT Narrative [facility] - 03/12/2018 3:56 PM EDT Patient's primary care provider is: ??N/A Testing performed at: [facility], [address] [place] [address], [address], Transit Mix Operator: Jose R Sierra MD Shahana Fraser LEGAL DOCUMENT SPECIALIST LAB SAME DAY RESULT Final Resul t Performing Organization Address [facility] de Phone Number [address] [address] DIRECTOR Jose R Sierra MD * (ABNORMAL) C-REACTIVE PROTEIN (CRP) - INFLAMMATION (03/12/2018 3:16 PM EDT) Only the most recent of2 resultswithin the time period is included. Pathologist [facility] C reactive protein 29.5(H) 0.0 - 8.0 mg/L [facility] 03/12/2018 3:16 PM EDT 03/12/2018 3:16 PM EDT [facility] - 03/12/2018 5:09 PM EDT Patient's primary care provider is: ??N/A Testing performed at: [facility], [address] [place] [address], [address], Transit Mix Operator: Jose R Sierra MD Shahana Fraser NP LABORATORY Final Result Performing Organization Address [facility] de Phone Number [address] [address] DIRECTOR Jose R Sierra MD * (ABNORMAL) ERYTHROCYTE SEDIMENTATION RATE (ESR), WESTERGREN (03/12/2018 3:16 PM EDT) Only the most recent of2 resultswithin the time period is included. Pathologist [facility] Sedimentation Rate Westren (ESR) 23(H) 0 - 20 mm/hr [facility] 03/12/2018 3:16 PM EDT 03/12/2018 3:16 PM EDT [facility] - 03/12/2018 5:50 PM EDT Patient's primary care provider is: ??N/A Testing performed at: [facility], [address] [place] [address], [address], Transit Mix Operator: Jose R Sierra MD us Shahana Fraser NP LAB SAME DAY RESULT Final Resul t Performing Organization Address [facility] de Phone Number [address] [address] DIRECTOR Jose R Sierra MD * (ABNORMAL) CBC INCLUDES DIFFERENTIAL AND PLATELET COUNT (03/12/2018 3:16 PM EDT) Only the most recent of2 resultswithin the time period is included. WBC 6.7 3.8 - 10.8 K/uL [facility] Neutrophils # 5.1 1.5 - 7.8 K/uL [facility] Immature Granulocytes # 0.01 0.00 - 0.07 K/uL [facility] Comment:Cells included in IM M GRANS # : Metamyelocytes, Myelocytes and Promyelocytes. Lymphocytes # 0.8(L) 0.9 - 3.9 K/uL [facility] Monocytes # 0.6 0.2 - [...] PM EDT 03/12/2018 3:16 PM EDT Narrative [facility] - 03/12/2018 3:49 PM EDT Patient's primary care provider is: ??N/A Testing performed at: [facility], [address] [place] [address], [address], Transit Mix Operator: Jose R Sierra MD us Shahana Fraser NP LAB SAME DAY RESULT Final Resul t [address] [address] DIRECTOR Jose R Sierra MD * (ABNORMAL) [...] PM EDT 03/12/2018 3:16 PM EDT Narrative [facility] - 03/12/2018 3:54 PM EDT Patient's primary care provider is: ??N/A Testing performed at: [facility], [address] [place] [address], [address], Transit Mix Operator: Jose R Sierra MD Shahana Fraser NP LABORATORY Final Result [address] [address] DIRECTOR Jose R Sierra MD * (ABNORMAL) BASIC METABOLIC PANEL WITH (GFR) (03/12/2018 3:16 PM EDT) Only the most recent of2 resultswithin the time period is included. Glucose 110(H) 65 - 99 mg/dl [facility] Urea Nitrogen Blood (BUN) 12 7 - 25 mg/dL [facility] Creatinine 0.92 0.50 - 1.16 mg/dL [facility] Sodium 140 136 - 145 mmo/L [facility] Potassium 4.1 3.5 - 5.3 mmol/L [facility] Chloride 101 98 - 107 mmo/L [facility] Carbon dioxide 28 23 - 33 mmol/L [facility] Calcium 9.3 8.5 - 10.4 mg/dL [facility] GFR 72 >60 ml/min [facility] Comment:If the patient is Af rican Dominican, please multiply result by 1.210 03/12/2018 3:16 PM EDT 03/12/2018 3:16 PM EDT [facility] - 03/12/2018 5:09 PM EDT Patient's primary care provider is: ??N/A Testing performed at: [facility], [address] [place] [address] , [place], [address], Transit Mix Operator: Jose R Sierra MD Shahana Fraser NP LABORATORY Final Result Performing Organization Address City/State/[facility] de Phone Number [address] [address] DIRECTOR Jose R Sierra MD * BORRELIA BURGDORFERI AB (LYME), EIA WITH REFLEX IGG, IGM WB (03/12/2018 3:15 PM EDT) Only the most recent of2 resultswithin the time period is included. Borrelia burgdorferi Ab <0.90 index [facility] [...] 11:42 PM EDT Narrative Resulting Agency Comment [id number] Shahana Fraser NP LABORATORY Final Result Performing Organization Address [facility] de Phone Number [facility] [address] [place] [address] * RHEUMATOID FACTOR, SERUM (01/18/2017 10:36 AM EDT) Pathologist [facility] Rheumatoid Factor (Quant) 8 <14 IU/mL [facility] 01/18/2017 10:3 6 AM EDT 01/18/2017 1:52 PM EDT Narrative Resulting Agency Comment [id number] Quang Arauz MD LABORATORY Final Result Performing Organization Address [facility] de Phone Number [facility] [address] [place] [address] * FELIZ SCREEN IFA W/REFLEX TO TITER/PATTERN IFA (01/18/2017 10:36 AM EDT) Pathologist [facility] FELIZ IFA NEGATIVE NEGATIVE [facility] Comment: FELIZ IFA is a first line screen for detecting the presence of up to approximately 150 autoantibodies in various autoimmune diseases. A negative FELIZ IFA result suggests FELIZ-associated autoimmune diseases are not present at this time. Visit Physician FAQs for interpretation of all antibodies in the [place], prevalence, and association with diseases at http://education.Lightera/ faq/[email or web address] 01/18/2017 10:3 6 AM EDT 01/18/2017 1:52 PM EDT Narrative Resulting Agency Comment [id number] Result [facility] Quang Arauz MD LABORATORY Final Result Performing Organization Address [facility] de Phone Number [facility] [address] [place] [address] * CYCLIC CITRULLINATEDPEPTIDE CCP AB IGG (01/18/2017 10:36 AM EDT) CCP Ab, IgG <16 UNITS [facility] Comment: Reference Range Negative: ?<20 Weak Positive: ? 20-39 Moderate Positive: ?? 40-59 Strong Positive: ? >59 01/18/2017 10:3 6 AM EDT 01/18/2017 1:52 PM EDT Narrative Resulting Agency Comment [id number] Quang Arauz MD LABORATORY Final Result [facility] [address] [place] [address] * XRAY FINGER(S) MIN 2 VWS - RIGHT FC (11/03/2016 5:40 PM EDT) Anatomical Region Laterality Modality UPPER EXTREMITY Radiographic Niya ging 11/03/2016 6:48 PM EDT Narrative 11/03/2016 6:48 PM EDT 3 views of the right third finger: Comparison: None. Findings: Normal alignment. No acute fracture. No significant foreign body. Impression: No fracture. ??Normal examination. Procedure Note Chacorta Forte MD - 11/03/2016 3 views of the right third finger: Comparison: None. Findings: Normal alignment. No acute fracture. No significant foreign body. Impression: No fracture. Normal examination. Quang Arauz MD IMG XRAY NO CONTRAST ORDERABLE S Final Result * (ABNORMAL) CBC (H/H, RBC, INDICES,WBC, PLT) (09/29/2016 9:39 AM EDT) Pathologist [facility] WBC 5.0 3.8 - 10.8 K/uL [facility] RBC 4.27 3.80 - 5.10 M/uL [facility] Hemoglobin 11.7 11.7 - 15.5 g/dL [facility] Hematocrit 38.2 35.0 - 45.0 % [facility] MCV 89.5 80.0 - 100.0 fl [facility] MCH 27.4 27.0 - 33.0 pg [facility] MCHC 30.6(L) 32.0 - 36.0 g/dL [facility] RDW 13.0 11.0 - 15.0 % [facility] PLT 264 140 - 400 K/uL [facility] 09/29/2016 9:39 AM EDT 09/29/2016 9:39 AM EDT Narrative [facility] - 09/29/2016 11:08 AM EDT fasting Patient's primary care provider is: ??N/A Testing performed at: [facility], [address] [place] [address], [address], Transit Mix Operator: Silvia Reyes M.D. Breann Eugene MD LAB SAME DAY RESULT Final Result [address] [address] DIRECTOR SILVIA REYES M.D. * (ABNORMAL) LIPID PANEL WITH REFLEX TO DIRECT LDL (09/29/2016 9:39 AM EDT) Only the most recent of2 resultswithin the time period is included. Cholesterol 223(H) <200 mg/dL [facility] Triglyceride 79 <150 mg/dL [facility] HDL Cholesterol 60 >40 mg/dL [facility] Comment: NCEP GUIDELINES Desireable >60 mg/dL Borderline 40-59 mg/dL ?? Undesirable <40 mg/dL LDL Cholesterol 147(H) <130 mg/dL [facility] CHOL/HDL Ratio 4 0 - 5 CALC [facility] 09/29/2016 9:39 AM EDT 09/29/2016 9:39 AM EDT Narrative [facility] - 09/29/2016 11:35 AM EDT fasting Patient's primary care provider is: ??N/A Testing performed at: [facility], [address] [place] [address], [address], Transit Mix Operator: Silvia Reyes M.D. us Breann Eugene MD LABORATORY Final Result [facility] [address] [place] [address] DIRECTOR SILVIA REYES M.D. * XRAY KNEE FOR ORTHO - LEFT FC (08/11/2016 8:57 AM EDT) Anatomical Region Laterality Modality LOWER EXTREMITY Radiographic Niya ging 08/11/2016 9:46 AM EDT Narrative 08/11/2016 9:46 AM EDT EXAM: Bilateral knee radiographs. TECHNIQUE: Single standing frontal view of both knees. ??2 additional views of the left knee. COMPARISON: None FINDINGS: Right knee: Unremarkable. Left knee: Small joint effusion. ??Alignment is normal. ??No fractures or other osseous abnormalities. IMPRESSION: Small left knee effusion. Procedure Note Elvin Staton MD - 08/11/2016 EXAM: Bilateral knee radiographs. TECHNIQUE: Single standing frontal view of both knees. 2 additional viewsof the left knee. COMPARISON: None FINDINGS: Right knee: Unremarkable. Left knee: Small joint effusion. Alignment is normal. No fractures orother osseous abnormalities. IMPRESSION: Small left knee effusion. us Breann Eugene MD IMG XRAY NO CONTRAST ORDERABLES Final Result * HCG, (HUMAN CHORIONIC GONADOTROPIN), URINE, QUALITATIVE (SITE - STAT ONLY) (08/11/2016 8:38 AM EDT) HCG, Qualitative, Urine Negative Negative [facility] 08/11/2016 8:38 AM EDT 08/11/2016 8:38 AM EDT Narrative [facility] - 08/11/2016 8:46 AM EDT Please print and deliver results to content designer as soon as possible. Patient's primary care provider is: ??N/A Testing performed at: [facility], [address] [place] [address] , [place], [address], Transit Mix Operator: Silvia Reyes M.D. us Breann Eugene MD LAB SAME DAY RESULT Final Result [address] [address] DIRECTOR SILVIA REYES M.D. * EKG (08/24/2015) us Non Rmg Unknown Pcp CARDIOVASCULAR-NO INBASKET R TG Final Result * UNSPECIFIED DIAGNOSTIC PROCE (08/19/2015) us Jose R Arauz LABORATORY Final Result Visit Diagnoses Diagnosis Start Date Left knee pain, unspecified chronicity 08/10/2016 Amenorrhea Absence of menstruation 08/10/2016 Knee pain, unspecified chronicity, unspecified laterality 08/11/2016 Amenorrhea Absence of menstruation 08/11/2016 Lipid screening Screening for lipoid disorders 09/29/2016 Routine history and physical examination of adult Routine general medical examination at a health care facility 09/29/2016 Routine history and physical examination of adult Routine general medical examination at a health care facility 09/29/2016 Lipid screening Screening for lipoid disorders 09/29/2016 Skin lesion of right arm Unspecified disorder of skin and subcutaneous tissue 09/29/2016 Pain of finger of right hand Pain in limb 11/02/2016 Left knee pain, unspecified chronicity 11/02/2016 Pain of finger of right hand Pain in limb 11/03/2016 Left knee pain, unspecified chronicity 11/07/2016 Patellofemoral arthralgia of left knee Pain in joint, lower leg 11/07/2016 Chondromalacia patellae, left 11/07/2016 Pronation deformity of both feet 11/07/2016 Pes planus of both feet 11/07/2016 Pain in both feet Pain in limb 11/07/2016 Right knee pain, unspecified chronicity 11/07/2016 Arthralgia, unspecified joint 01/18/2017 Arthralgia, unspecified joint 01/18/2017 Arthralgia, unspecified joint 02/01/2017 Pain in left buttock Mylagia and myositis, unspecified 03/28/2017 Tick bite, initial encounter 03/28/2017 Chronic pain of left knee Pain in joint, lower leg 06/23/2017 Fever, unspecified fever cause 03/12/2018 Fever, unspecified fever cause 03/12/2018 Left ear pain Otalgia, unspecified 04/19/2018 Fever, unspecified fever cause 05/11/2018 Cough 05/11/2018 Cough 05/11/2018 Fever, unspecified fever cause 05/11/2018 Cough 06/14/2018 Breast cancer screening by mammogram 05/23/2019 Adjustment disorder with anxious mood Adjustment disorder with anxiety 02/11/2020 Diarrhea, unspecified type 02/21/2020 Adjustment disorder with anxious mood Adjustment disorder with anxiety 03/12/2020 Contact with and (suspected) exposure to covid-19 01/18/2021 Tension headache 12/27/2021 Occipital neuralgia of left side 12/27/2021 Adjustment reaction with anxiety Adjustment disorder with anxiety 12/27/2021 Housing situation unstable 12/27/2021 Acute non-recurrent frontal sinusitis 08/01/2022 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
--- OUTSIDE RECORDS SUMMARY | 2024-09-17 08:52 | XMS_ITS | Encounter Summary ---
Author Organization [facility] Address [address] [place] [address] Care Team Providers Care Patient Insurance Clerk Name Role Phone Jose R Arauz Primary Care Provider [phone] Quang Arauz MD Primary Care Provider [phone] Breann Eugene MD Primary Care Provider Unavailab le Unknown Pcp, Non Rmg Primary Care Provider Unava ilable Encounter Details Date Type Department Care Team (Late st Contact Info) Description 09/29/2016 Orders Only [address] [address] Breann Eugene MD Social History Tobacco Use Types Packs/Day Years [...] of this encounter Procedures * Due to [place] state law, this organization might not be sharing negative HIV tests. Procedure Name Priority Date/Time Associated Diagnosis Comments CBC (H/H, RBC, INDICES,WBC, PLT) Routine 09/29/2016 9:39 AM EDT Routine history and physical examination of adult LIPID PANEL WITH REFLEX TO DIRECT LDL Routine 09/29/2016 9:39 AM EDT Lipid screening BASIC METABOLIC PANEL WITH (GFR) Routine 09/29/2016 9:39 AM EDT Routine history and physical examination of adult documented in this encounter Results * Due to [place] state law, this organization might not be sharing negative HIV tests. * (ABNORMAL) CBC (H/H, RBC, INDICES,WBC, PLT) (09/29/2016 9:39 AM EDT) WBC 5.0 3.8 - 10.8 K/uL [facility] PLT 264 140 - 400 K/uL [facility] 09/29/2016 9:39 AM EDT 09/29/2016 9:39 AM EDT Narrative [facility] - 09/29/2016 11:08 AM EDT fasting Patient's primary care provider is: ??N/A Testing performed at: [facility], [address] [place] [address], [address], Legger Press Operator: Silvia Houston M.D. Breann Eugene MD LAB SAME DAY RESULT Final Result [address] [address] DIRECTOR SILVIA HOUSTON M.D. * BASIC METABOLIC PANEL WITH (GFR) (09/29/2016 9:39 AM EDT) Glucose 92 65 - 99 mg/dl [facility] Urea Nitrogen Blood (BUN) 9 7 - 25 mg/dL [facility] Creatinine 0.81 0.50 - 1.16 mg/dL [facility] Sodium 139 136 - 145 mmo/L [facility] Potassium 4.6 3.5 - 5.3 mmol/L [facility] Chloride 103 98 - 107 mmo/L [facility] Carbon dioxide 25 23 - 33 mmol/L [facility] Calcium 8.9 8.5 - 10.4 mg/dL [facility] GFR 84 >60 ml/min [facility] Comment:If the patient is Af rican [place] Islander, please multiply result by 1.210 09/29/2016 9:39 AM EDT 09/29/2016 9:39 AM EDT Narrative [facility] - 09/29/2016 11:35 AM EDT fasting Patient's primary care provider is: ??N/A Testing performed at: [facility], [address] [place] [address], [address], Legger Press Operator: Silvia Houston M.D. Breann Eugene MD LABORATORY Final Result [address] [address] DIRECTOR SILVIA HOUSTON M.D. * (ABNORMAL) LIPID PANEL WITH REFLEX TO DIRECT LDL (09/29/2016 9:39 AM EDT) Cholesterol 223(H) <200 mg/dL [facility] [...] AM EDT 09/29/2016 9:39 AM EDT Narrative [facility] - 09/29/2016 11:35 AM EDT fasting Patient's primary care provider is: ??N/A Testing performed at: [facility], [address] [place] [address], [address], Legger Press Operator: Silvia Houston M.D. Breann Eugene MD LABORATORY Final Result [facility] [address] [place] [address] DIRECTOR SILVIA HOUSTON M.D. documented in this encounter Visit Diagnoses Diagnosis Lipid screening Screening for lipoid disorders Routine history and physical examination of adult Routine general medical examination at a health care facility documented in this encounter Additional Health Concerns Infection Onset Date Last Indicated Resolved Time COVID-19 Rule-Out 01/18/2021 01/18/2021 01/19/2021 11:08 AM EDT documented as of this encounter Care Teams Patient Insurance Clerk Relationship Specialty Start Date End Date Jose R Arauz [address] [address] PCP - General Internal Medicine 08/01/16 10/03/16 Quang Arauz MD [address] [place] [address] PCP - General Internal Medicine 10/04/16 06/22/17 Breann Eugene MD [address] [place] [address] PCP - General Family Medicine 06/23/17 07/04/21 Unknown Pcp, Non Rmg PCP - General 07/05/21 03/10/22 documented as of this encounter
--- OUTSIDE RECORDS SUMMARY | 2024-09-17 08:52 | XMS_ITS | Encounter Summary ---
Author Organization [facility] Address [address] [place] [address] Care Team Providers Care High School Science Tutor Name Role Phone Jose R Arauz Primary Care Provider [phone] Quang Arauz MD Primary Care Provider [phone] Breann Eugene MD Primary Care Provider Unavailab le Unknown Pcp, Non Rmg Primary Care Provider Unava ilable Encounter Details Date Type Department Care Team (Late st Contact Info) Description 08/11/2016 Orders Only [address] [address] Breann Eugene MD Social History Tobacco Use [...] of this encounter Procedures * Due to [place] [employer] law, this organization might not be sharing negative HIV tests. Procedure Name Priority Date/Time Associated Diagnosis Comments HCG, (HUMAN CHORIONIC GONADOTROPIN), URINE, QUALITATIVE (SITE - STAT ONLY) STAT (All results called to provider) 08/11/2016 8:38 AM EDT Amenorrhea documented in this encounter Results * Due to [place] [employer] law, this organization might not be sharing negative HIV tests. * HCG, (HUMAN CHORIONIC GONADOTROPIN), URINE, QUALITATIVE (SITE - STAT ONLY) (08/11/2016 8:38 AM EDT) HCG, Qualitative, Urine Negative Negative [facility] 08/11/2016 8:38 AM EDT 08/11/2016 8:38 AM EDT Narrative [facility] - 08/11/2016 8:46 AM EDT Please print and deliver results to spa receptionist as soon as possible. Patient's primary care provider is: ??N/A Testing performed at: [facility], [address] [place] [address], [address], Rn Pool: Silvia Houston M.D. Breann Eugene MD LAB SAME DAY RESULT Final Result [address] [address] DIRECTOR SILVIA HOUSTON M.D. documented in this encounter Visit Diagnoses Diagnosis Amenorrhea Absence of menstruation documented in this encounter Additional Health Concerns Infection Onset Date Last Indicated Resolved Time COVID-19 Rule-Out 01/18/2021 01/18/2021 01/19/2021 11:08 AM EDT documented as of this encounter Care Teams High School Science Tutor Relationship Specialty Start Date End Date Jose R Arauz [address] [address] PCP - General Internal Medicine 08/01/16 10/03/16 Quang Arauz MD [address] [place] [address] PCP - General Internal Medicine 10/04/16 06/22/17 Breann Eugene MD [address] [place] [address] PCP - General Family Medicine 06/23/17 07/04/21 Unknown Pcp, Non Rmg PCP - General 07/05/21 03/10/22 documented as of this encounter
--- OUTSIDE RECORDS SUMMARY | 2024-09-17 08:52 | XMS_ITS | Encounter Summary ---
Author Organization [facility] Address [address] [place] [address] Care Team Providers Care Government Auditor Name Role Phone Breann Eugene MD Primary Care Provider Unavailab le Unknown Pcp, Non Rmg Primary Care Provider Unava ilable Reason for Visit * Reason Comments Neck Pain Encounter Details Date Type Department Care Team (Late st Contact Info) Description 04/15/[address] [facility] Adult Medicine [address] [place] [phone] Breann Eugene MD Neck Pain Social History Tobacco Use Types Packs/Day Years [...] encounter Miscellaneous Notes * Telephone Encounter - ClairRadha - 04/15/2019 12:24 PM EST Plan/disposition: Take OTC pain medication of choice and follow instructions on label. Use heat or cool compresses/ice wrapped in cloth as needed for increased comfort. Call back with fever, rash, joint swelling, or condition worsens. Continue current home treatment and call back if no improvement or worsens. Patient/caller aware we can answer healthcare questions 12/12. Patient/caller verbalized understanding and states will follow this advice. Disease Management Program Membership: None Chief Complaint: Patient, Shaunestrella Mercer Chato female 38 y.o. calling with complaint of right neck pain. Onset: last night Emergent/Urgent Symptoms: Patient denies or is not having any chest pain, SOB, mental confusion, slurred speech, mental confusion, extremity weakness or stiff neck. Travel: Have you traveled outside the [place] within the last 3 weeks? No Signs and Symptoms: Intensity: pain scale (0-10)- 8 for a few seconds when she stand up Pain Character: painful to touch, intermittent and ONLY HURTS when she goes form sitting to standing and coughing Associated Symptoms/ROS: headache and flu-like symptoms- congestion, cough, URI. Last menstrual period: began on: 03/25 approx Pertinent History: none Current Home Treatment: none Effectiveness of Home Treatment: N/A. * Telephone Encounter - Martine Whalen - 04/15/2019 11:59 AM EST Pt c/o right side neck pain since yesterday Triage unavailable, pt ok for call back. documented in this encounter Plan of Treatment Not on file documented as of this encounter Visit Diagnoses Not on filedocumented in this encounter Additional Health Concerns Infection Onset Date Last Indicated Resolved Time COVID-19 Rule-Out 01/18/2021 01/18/2021 01/19/2021 11:08 AM EDT documented as of this encounter Care Teams Government Auditor Relationship Specialty Start Date End Date Breann Eugene MD PCP - General Family Medicine 06/23/17 07/04/21 Unknown Pcp, Non Rmg PCP - General 07/05/21 03/10/22 documented as of this encounter
== END 2024-09-17 08:32 | disposition home or self-care (01) ==
LOC: HO.UMASIMG 08:31
PROVIDERS: Visit Provider Family Medicine
DX: Z13.89 Encounter for screening for other disorder (principal)

== ENCOUNTER 2024-09-26 06:47 | Outpatient (REF) | payer OTHER, SELFPAY ==
--- NOTE | ~2024-09-26 | US_ITS ---
EXAMINATION: US PELVIS TRANSABDOMINAL AND TRANSVAGINAL HISTORY: MENORRHAGIA, HCT @ 24 COMPARISON: There are no prior studies for comparison. TECHNIQUE: Transabdominal and endovaginal real-time 2D blandon-scale ultrasound was performed. FINDINGS: Uterus: The uterus is normal in size, measuring 10.7 x 5.7 x 6.9 cm. Myometrium has a normal echotexture. There is a right posterior fibroid measuring 3.5 x 2.9 x 2.8 cm. There is a heterogeneous hypervascular mass of the cervix measuring 5.1 x 3.0 x 4.3 cm. Endometrium: The endometrial stripe measures 3 mm in thickness. Right ovary: The right ovary measures 3.0 x 1.6 x 2.4 cm. The right ovary is normal in size and echotexture. Left ovary: The left ovary measures 3.6 x 1.6 x 2.5 cm. The left ovary is normal in size and echotexture. Pelvic fluid: none. US/US pelvic and transvaginal IMPRESSION: 5.1 x 3.0 x 4.3 cm heterogeneous vascular mass of the cervix, highly suspicious for cervical carcinoma. ACTUARIAL TRAINEE consultation and direct visualization are recommended. Electronically signed by: Shai Stephens MD 09/26/2024 03:56 PM EDT
--- OUTSIDE RECORDS SUMMARY | 2024-09-26 06:50 | XMS_ITS | Continuity of Care Document ---
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[place] 08/07/2022 9:45 AM EDT Office Visit [address] [phone] Megan Uribe DNP Localized papular rash (Primary Dx) 08/01/2022 9:15 AM EDT Office Visit [address] [phone] Gabby Pastor PA Acute non-recurrent frontal sinusitis (Primary Dx) 12/27/2021 11:45 AM EDT Office Visit [address] [address] Zane Cisneros MD Tension headache (Primary Dx); Occipital neuralgia of left side; Adjustment reaction with anxiety; Housing situation unstable 01/18/2021 Orders Only [address] [address] Breann Eugene MD 03/12/2020 Travel 03/12/2020 12:00 PM EDT Office Visit [address] [address] Breann Eugene MD Adjustment disorder with anxious mood (Primary Dx) 02/21/2020 3:30 PM EDT Office Visit [address] [place] [phone] Hollie Luciano, ZENIA Diarrhea, unspecified type (Primary Dx) 02/21/2020 Travel 02/21/[address] [address] Breann Eugene MD Abdominal Pain 02/11/2020 1:30 PM EDT Office Visit [address] [phone] Joanie Stephens LICSW Adjustment disorder with anxious mood 08/20/[address] [place] [address] [phone] Breann Eugene MD Rash 05/23/2019 10:30 AM EST Radiology [facility] Mammography [address] [place] [address] [place] [address] Breast cancer screening by mammogram 04/15/[address] [place] [address] [phone] Breann Eugene MD Mammogram 04/15/[address] [place] [address] [phone] Breann Eugene MD Neck Pain 07/05/[address] [place] [address] [address] Breann Eugene MD Prescription Assistance 06/14/2018 11:00 AM EST Office Visit [address] [address] Breann Eugene MD Cough (Primary Dx) 06/14/[address] [place] [address] [phone] Breann Eugene MD Cough 05/11/2018 11:30 AM EST Radiology [facility] Xray [address] [facility] [address] [place] [address] Fever, unspecified fever cause; Cough 05/11/2018 11:00 AM EST Office Visit [address] [place] [address] Leatha Mahoney PA Cough (Primary Dx); Fever, unspecified fever cause 05/11/[address] [address] Breann Eugene MD Fever 04/19/2018 11:15 AM EST Office Visit [address] [place] [address] Vanessa Hilario PA Left ear pain (Primary Dx) 04/18/[address] [place] [address] [phone] Breann Eugene MD Ear Pain (left); FYI 03/12/2018 3:30 PM EDT Radiology [address] [address] 03/12/2018 Orders Only [address] [place] [address] [address] Shahana Fraser NP Medications 03/12/2018 2:20 PM EDT Office Visit [address] [phone] Shahana Fraser NP Fever, unspecified fever cause (Primary Dx) 03/12/[address] [phone] Breann Eugene MD Chest Pain 07/10/[address] [place] [address] [facility] Res[facility] Imaging [address] [place] [phone] Shahana Fraser NP Denial 06/23/2017 3:00 PM EST Office Visit [address] [phone] Shahana Fraser NP Chronic pain of left knee (Primary Dx) 03/28/2017 2:45 PM EST Office Visit [address] [phone] Quang Arauz MD Pain in left buttock (Primary Dx); Tick bite, initial encounter 03/28/[address] [place] [address] [address] Quang Arauz MD Tick bite 03/02/[address] [phone] Quang Arauz MD Letter/form Request 02/01/[address] [address] Quang Arauz MD Results 01/18/2017 Orders Only [address] [address] Quang Arauz MD 01/18/2017 10:15 AM EDT Office Visit [address] [place] [address] [address] Quang Arauz MD Arthralgia, unspecified joint (Primary Dx) 01/16/[address] [address] Quang Arauz MD Patient Questions 01/16/[address] [place] [address] [address] Quang Arauz MD Joint Pain 01/16/[address] [address] Quang Arauz MD Knee Pain 11/15/2016 Telephone [facility] Podiatry [address] [place] [address] 2nd Floor [address] [place] [address] Michael Amaya DPM Information (ORTHOTIC info) 11/07/2016 10:15 AM EDT Consult (Initial) [facility] Orth[facility] [address] [place] [address] Manny Justin DO Patellofemoral arthralgia of left knee (Primary Dx); Left knee pain, unspecified chronicity; Chondromalacia patellae, left 11/07/2016 3:45 PM EDT Consult (Initial) [facility] Podiatry [address] [facility] 2nd Floor [address] [place] [address] Michael Amaya DPM Pronation deformity of both feet (Primary Dx); Pes planus of both feet; Pain in both feet; Right knee pain, unspecified chronicity 11/04/2016 Telephone [facility] [address] [place] [phone] Quagn Arauz MD Results (x ray finger) 11/03/2016 5:45 PM EDT Radiology [facility] Xray [address] [place] [address] Pain of finger of right hand 11/02/2016 9:45 AM EDT Office Visit [address] [place] [address] [phone] Quang Arauz MD Pain of finger of right hand (Primary Dx); Left knee pain, unspecified chronicity 10/05/2016 Telephone [facility] [address] [place] [phone] Quang Arauz MD Change of PCP 09/29/2016 Orders Only [address] [address] Breann Eugene MD 09/29/2016 9:00 AM EDT CPE - Comprehensive Physical Exam [address] [address] Breann Eugene MD Routine history and physical examination of adult (Primary Dx); Lipid screening; Skin lesion of right arm 09/22/2016 Abstract [facility] Medical Records [address] [place] [address] Breann Eugene MD 09/22/2016 Abstract [facility] Medical Records [address] [place] [address] Jose R Arauz 08/11/[address] [address] Breann Eugene MD Return Call 08/11/2016 8:45 AM EDT Radiology [facility] Xray [address] [place] [address] 08/11/2016 Orders Only [address] [address] Breann Eugene MD 08/10/2016 10:15 AM EDT Office Visit [address] [address] Breann Eugene MD Left knee pain, unspecified [...] ml dose 04/04/2021 COVID-19, mRNA (Pfizer Pre 2022) Monovalent, 30 mcg/0.3 ml 09/09/2020,08/19/2020 Tdap 01/05/2016 Tdap(Adacel) 08/21/2015 Family History Medical History Relation Name Comments Cancer - Breast Maternal grandmother Hypertension Mother Relation Name Status Comments Maternal grandmother Mother Social History Smoking Status as of 09/26/2024 Tobacco Use Types Packs/Day Years Used Date [...] Not on file Procedures * Due to [place] state law, this organization might not be [...] LDL Routine 08/19/2015 Results * Due to [place] state law, this organization might not be sharing negative HIV tests. * SARS COV 2 RNA(COVID 19), QUALITATIVE NAAT (01/18/2021 9:49 AM EDT) SARS-COV-2 RNA NOT DETECTED NOT DETECTED [employer] Comment: A Not Detected result means that [...] Method: Nucleic Acid Amplification Test including reverse ferryboat operator helper polymerase chain reaction (RT-PCR) and ferryboat operator helper mediated amplification (TMA). The test method meets [...] providers and patients using the following websites: https://www.Money M[employer]/home/Covid-19/HCP/QuestLDT/ fact-sheet.html https://www.[employer]/home/Covid-19/Patients/QuestLDT/ fact-sheet.html Due to the current public health emergency, [facility] is accepting samples from appropriate clinical sources [...] about COVID-19 can be found at the [facility] website: www.[employer]/Covid19. Anterior Nares 01/18/2021 9 :49 AM EDT 01/18/2021 12:12 PM EDT Narrative [facility] - 01/18/2021 8:32 PM EDT Patient has been notified of results by [employer] automated phone system. ?? ##NOTIFIED## Resulting Agency Comment [id number] Breann Eugene MD LABORATORY Final Result [facility] [address] [place] [address] * (ABNORMAL) CBC (INCLUDES DIFF/PLT) (ON-SITE) (02/21/2020 [...] 6:14 PM EDT Narrative Resulting Agency Comment [id number] Hollie Luciano PROFESSOR OF COMMUNICATION ARTS LAB SAME DAY RESULT Final Resul t [facility] [address] [place] [address] * (ABNORMAL) HEPATIC FUNCTION PANEL (ALT,AST,ALK PH,BILI'S,TP,ALB) [...] 6:14 PM EDT Narrative Resulting Agency Comment [id number] us Hollie Luciano PROFESSOR OF COMMUNICATION ARTS LABORATORY Final Result [facility] [address] [place] [address] * (ABNORMAL) COMPREHENSIVE METABOLIC PANEL WITH GFR [...] needs for GFR calculation. Resulting Agency Comment [id number] us Hollie Luciano NP LABORATORY Final Result [facility] [address] [place] [address] * MAMMOGRAM SCREENING TOMOSYNTHESIS, BILATERAL FC (05/23/2019 [...] isseen. Impression: No consolidation. us Shahana Fraser PROFESSOR OF COMMUNICATION ARTS IMG XRAY NO CONTRAST ORDERABLES Final Result [...] 3:16 PM EDT 03/12/2018 3:16 PM EDT [facility] - 03/12/2018 3:53 PM EDT Patient's primary care provider is: ??N/A Testing performed at: [facility], [address] [place] [address], [address], Camera Operator: Jose R Sierra MD Shahana Fraser [facility] LABORAT[facility] Final Result [address] [address] DIRECTOR Jose R Sierra MD * STREP GROUP A AG, RAPID, WITHOUT REFLEX (OBTAIN IN [facility] ONLY!!!) (03/12/2018 3:16 PM EDT) Streptococcus pyogenes Ag (Throat) Negative for Gr A NEG FOR GR. A STREP [facility] 03/12/2018 3:16 PM EDT 03/12/2018 3:16 PM EDT [facility] - 03/12/2018 3:35 PM EDT GRP A CULTURE, ??SPECIMEN SOURCE: ??THROAT Patient's primary care provider is: ??N/A Testing performed at: [facility], [address] [place] [address], [address], Camera Operator: Jose R Sierra MD Shahana Fraser NP LAB SAME DAY RESULT Final Resul t Performing Organization Address [facility] de Phone Number [address] [address] DIRECTOR Jose R Sierra MD * (ABNORMAL) CULTURE, URINE, ROUTINE (03/12/2018 3:16 PM EDT) [place] count (Urine) >10,000-<50,00 0 CFU/ml [facility] Bacteria culture (Urine) Mixed Culture, 3 or more organisms present. Repeat if Clinically Indicated.(A) No Growth [facility] 03/12/2018 3:16 PM EDT 03/12/2018 3:16 PM EDT [facility] - 03/14/2018 8:53 AM EDT Patient's primary care provider is: ??N/A Testing performed at: [facility], [address] [place] [address], [address], Camera Operator: Jose R Sierra MD Shahana Fraser NP LABORATORY Final Result Performing Organization Address [facility] de Phone Number [address] [address] DIRECTOR Jose R Sierra MD * STREPTOCOCCUS, GROUP A CULTURE (03/12/2018 3:16 PM EDT) Streptococcus pyogenes (Group A) Negative for Gr A NEG FOR GR. A STREP [facility] 03/12/2018 3:16 PM EDT 03/12/2018 3:16 PM EDT [facility] - 03/14/2018 8:57 AM EDT GRP A CULTURE, ??SPECIMEN SOURCE: ??THROAT Patient's primary care provider is: ??N/A Testing performed at: [facility], [address] [place] [address], [address], Camera Operator: Jose R Sierra MD Shahana Fraser PROFESSOR OF COMMUNICATION ARTS LABORATORY Final Result Performing Organization Address [facility] de Phone Number [address] [address] DIRECTOR Jose R Sierra MD * MONONUCLEOSIS SCREEN (HETEROPHILE) (03/12/2018 3:16 PM EDT) [facility] MONOTEST Negative Negative [facility] 03/12/2018 3:16 PM EDT 03/12/2018 3:16 PM EDT Narrative [facility] - 03/12/2018 3:56 PM EDT Patient's primary care provider is: ??N/A Testing performed at: [facility], [address] [place] [address], [address], Camera Operator: Jose R Sierra MD Shahana Fraser PROFESSOR OF COMMUNICATION ARTS LAB SAME DAY RESULT Final Resul t Performing Organization Address [facility] de Phone Number [address] [address] DIRECTOR Jose R Sierra MD * (ABNORMAL) C-REACTIVE PROTEIN (CRP) - INFLAMMATION (03/12/2018 3:16 PM EDT) Only the most recent of2 resultswithin the time period is included. Pathologist [facility] C reactive protein 29.5(H) 0.0 - 8.0 mg/L [facility] 03/12/2018 3:16 PM EDT 03/12/2018 3:16 PM EDT [facility] - 03/12/2018 5:09 PM EDT Patient's primary care provider is: ??N/A Testing performed at: [facility], [address] [place] [address], [address], Camera Operator: Jose R Sierra MD Shahana Fraser NP LABORATORY Final Result Performing Organization Address [facility] de Phone Number [address] [address] DIRECTOR Jose R Sierra MD * (ABNORMAL) ERYTHROCYTE SEDIMENTATION RATE (ESR), WESTERGREN (03/12/2018 3:16 PM EDT) Only the most recent of2 resultswithin the time period is included. Pathologist [facility] Sedimentation Rate Westren (ESR) 23(H) 0 - 20 mm/hr [facility] 03/12/2018 3:16 PM EDT 03/12/2018 3:16 PM EDT [facility] - 03/12/2018 5:50 PM EDT Patient's primary care provider is: ??N/A Testing performed at: [facility], [address] [place] [address], [address], Camera Operator: Jose R Sierra MD us Shahana Fraser NP LAB SAME DAY RESULT Final Resul t Performing Organization Address [facility] de Phone Number [address] [address] DIRECTOR Jose R Sierra MD * (ABNORMAL) CBC INCLUDES DIFFERENTIAL AND PLATELET COUNT (03/12/2018 3:16 PM EDT) Only the most recent of2 resultswithin the time period is included. WBC 6.7 3.8 - 10.8 K/uL [facility] Neutrophils # 5.1 1.5 - 7.8 K/uL [facility] Immature Granulocytes # 0.01 0.00 - 0.07 K/uL [facility] Comment:Cells included in IM M [...] PM EDT 03/12/2018 3:16 PM EDT Narrative [facility] - 03/12/2018 3:49 PM EDT Patient's primary care provider is: ??N/A Testing performed at: [facility], [address] [place] [address], [address], Camera Operator: Jos eR Sierra MD us Shahana Fraser NP LAB SAME DAY RESULT Final Resul t [address] [address] DIRECTOR Jose R Sierra MD * (ABNORMAL) [...] PM EDT 03/12/2018 3:16 PM EDT Narrative [facility] - 03/12/2018 3:54 PM EDT Patient's primary care provider is: ??N/A Testing performed at: [facility], [address] [place] [address], [address], Camera Operator: Jose R Sierra MD Shahana Fraser NP LABORATORY Final Result [address] [address] DIRECTOR Jose R Sierra MD * (ABNORMAL) [...] GROUP Comment:If the patient is Af rican Montenegrin, please multiply result by 1.210 03/12/2018 3:16 PM EDT 03/12/2018 3:16 PM EDT [facility] - 03/12/2018 5:09 PM EDT Patient's primary care provider is: ??N/A Testing performed at: [facility], [address] [place] [address] , [place], [address], Camera Operator: Jose R Sierra MD Shahana Fraser NP LABORATORY Final Result Performing Organization Address City/State/[facility] Co de Phone Number [address] [address] DIRECTOR Jose R Sierra MD * BORRELIA [...] 11:42 PM EDT Narrative Resulting Agency Comment [id number] Shahana Fraser NP LABORATORY Final Result Performing Organization Address [facility] de Phone Number [facility] [address] [place] [address] * RHEUMATOID FACTOR, SERUM (01/18/2017 10:36 AM EDT) Pathologist [facility] Rheumatoid Factor (Quant) 8 <14 IU/mL [facility] 01/18/2017 10:3 6 AM EDT 01/18/2017 1:52 PM EDT Narrative Resulting Agency Comment [id number] Quang Arauz MD LABORATORY Final Result Performing Organization Address [facility] de Phone Number [facility] [address] [place] [address] * FELIZ SCREEN IFA W/REFLEX TO TITER/PATTERN [...] for interpretation of all antibodies in the [place], prevalence, and association with diseases at http://education.Gimado/ faq/ZTC042 01/18/2017 10:3 6 AM EDT 01/18/2017 1:52 PM EDT Narrative Resulting Agency Comment [id number] Result [facility] Quang Arauz MD LABORATORY Final Result Performing Organization Address [facility] de Phone Number [facility] [address] [place] [address] * CYCLIC CITRULLINATEDPEPTIDE CCP AB IGG (01/18/2017 10:36 AM EDT) CCP Ab, IgG <16 UNITS [facility] Comment: Reference Range Negative: ?<20 Weak Positive: ? 20-39 Moderate Positive: ?? 40-59 Strong Positive: ? >59 01/18/2017 10:3 6 AM EDT 01/18/2017 1:52 PM EDT Narrative Resulting Agency Comment [id number] Quang Arauz MD LABORATORY Final Result [facility] [address] [place] [address] * XRAY FINGER(S) MIN 2 VWS - [...] care provider is: ??N/A Testing performed at: [facility], [address] [place] [address], [address], Camera Operator: Silvia Reyes M.D. Breann Eugene MD LAB SAME DAY RESULT Final Result [address] [address] DIRECTOR SILVIA REYES M.D. * (ABNORMAL) LIPID [...] AM EDT 09/29/2016 9:39 AM EDT Narrative [facility] - 09/29/2016 11:35 AM EDT fasting Patient's primary care provider is: ??N/A Testing performed at: [facility], [address] [place] [address], [address], Camera Operator: Silvia Reyes M.D. us Breann Eugene MD LABORATORY Final Result [facility] [address] [place] [address] DIRECTOR SILVIA REYES M.D. * XRAY KNEE [...] AM EDT) HCG, Qualitative, Urine Negative Negative [facility] 08/11/2016 8:38 AM EDT 08/11/2016 8:38 AM EDT Narrative [facility] - 08/11/2016 8:46 AM EDT Please print and deliver results to resident care aide as soon as possible. Patient's primary care provider is: ??N/A Testing performed at: [facility], [address] [place] [address] , [place], [address], Camera Operator: Silvia Reyes M.D. us Breann Eugene MD LAB SAME DAY RESULT Final Result [address] [address] DIRECTOR SILVIA REYES M.D. * EKG (08/24/2015) [...]
--- OUTSIDE RECORDS SUMMARY | 2024-09-26 06:50 | XMS_ITS | Data Portability ---
Author Organization [facility] [address] Address [address] [place] [address] Assessment No assessment recorded. Plan of Treatment Reminders Order Date Submit Date Provider Last Modified By Organization Details Last Modified Time Details Appointments None recorded. Lab None recorded. Referral physical therapist referral 2023 024 [email or web address] Not available 13:04:38 Procedures None recorded. Surgeries None recorded. Imaging None recorded. Medication Orders methocarbam ol 500 mg tablet 2023 024 sha [id number], [address] [facility], [place], [address], 4 20:10:07 Patient TargetsNo targets recorded. Patient Instructions Encounter Date Encounter Id Patient Instructions Last Modified By Organization Details Last Modified Time 07/10/2023 [id number] shoulder pain: care instructions sha Not available [...] Time Strain of muscle of left shoulder [id number] 05 Active 2023 [facility] [address] [place], [id number] , [facility] 4 15:51:16 Problem [...] % 88 /min 18 /min 46.2 kg/m2 356601. 74 g 133 mm[Hg] 85 mm[Hg] WOJCIECH JUAREZ [facility] 15:33:45 Social History Question Answer Notes LastModified by Organizat ion Details LastModified Time Tobacco Smoking Status Never Smoker WOJCIECH kraft [place] [facility] 07/10/2023 15:30:45 What Is Your Level Of Alcohol Consumption? None [email or web address] Information not available 07/10/2023 Do You Use Any Illicit Or Recreational Drugs? No [email or web address] Information not available 07/10/2023 Have You Recently Traveled Abroad? No [email or web address] Information not available 07/10/2023 Do You Or Have You Ever Used Any Other Forms Of Tobacco Or Nicotine? No [email or web address] Information not available 07/10/2023 Sex: Unknown Functional Status None recorded. Mental Status None recorded. Family History Relationship Description Onset Age of this Age Resolved Age Notes LastModified by Organization Details LastModified Time Father No current problems or disability [email or web address] Not available 07/10 15:30:31 Mother No current [...] SNOMED-CT Code Diagnosis ICD10 Code Diagnosis Note [id number] [place] [address] [place] [address] 07/10/2023 15:17:31 07/10/2023 16:02:30 Strain of muscle of left shoulder [id number] S46.912A You are being diagnosed with a [...] Dizziness. light headedness Thank you for using [facility] . Please feel free to contact us if you have any questions or concerns. Health Concerns Section Related Observation LastModified by Organization Detai ls LastModified Time None Recorded Concern Status LastModified by Organization Details LastModified Time None Recorded Advance Directives Directive None Recorded Payers Insurance Date Sequence Insurance Name Policy Number Policy Chamorro Covered Member ID Chamorro Member ID Guarantor Name 07/10/2023 1 [facility] [id number] Josafat Reis [id number] Josafat Reis Notes Date Note Type Note [...] JOSUÉ HAMILTON NP [address] [place], [address], [place] - [facility] 07/10/2023 20:13:15 OBGyn Episode No OBEpisode recorded.
--- OUTSIDE RECORDS SUMMARY | 2024-09-26 06:50 | XMS_ITS | Encounter Summary ---
Author Organization [facility] Address [address] [place] [address] Care Team Providers Care Music Journalist Name Role Phone Quang Arauz MD Primary Care Provider [phone] Breann Eugene MD Primary Care Provider Unavailab le Unknown Pcp, Non Rmg Primary Care Provider Unava ilable Encounter Details Date Type Department Care Team ([facility] st Contact Info) Description 01/18/2017 Orders Only [facility] Adult Medicine [address] [place] [phone] Quang Arauz MD [address] [place] [address] Social History Tobacco Use Types Packs/Day Years [...] of this encounter Procedures * Due to [place] state law, this organization might not be [...] in this encounter Results * Due to [place] state law, this organization might not be sharing negative HIV tests. * ERYTHROCYTE SEDIMENTATION RATE (ESR), MARLO (01/18/2017 10:38 AM EDT) Sedimentation Rate Diandraren (ESR) 10 0 - 20 mm/hr [facility] 01/18/2017 10:3 8 AM EDT 01/18/2017 10:38 AM EDT Narrative [facility] - 01/18/2017 1:47 PM EDT Patient is not fasting Patient's primary care provider is: ??N/A Testing performed at: [facility], [address] [place] [address], [address], Rope Tow Operator: Silvia Houston M.D. us Quang Arauz MD LAB SAME DAY RESULT Final Resu lt [address] [address] DIRECTOR SILVIA HOUSTON M.D. * COMPREHENSIVE METABOLIC [...] Alkaline phosphatase 57 33 - 130 U/L [facility] AST (SGOT) 14 <38 U/L [facility] ALT (SGPT) 10 <47 U/L [facility] Carbon dioxide 29 23 - 33 mmol/L [facility] GFR 79 >60 ml/min [facility] Comment:If the patient is Af rican Sammarinese, please multiply result by 1.210 01/18/2017 10:3 8 AM EDT 01/18/2017 10:38 AM EDT Narrative [facility] - 01/18/2017 12:05 PM EDT Patient is not fasting Patient's primary care provider is: ??N/A Testing performed at: [facility], [address] [place] [address], [address], Rope Tow Operator: Silvia Houston M.D. us Quang Arauz MD LABORATORY Final Result [address] [address] DIRECTOR SILVIA HOUSTON M.D. * (ABNORMAL) CBC [...] AM EDT 01/18/2017 10:38 AM EDT Narrative [facility] - 01/18/2017 11:48 AM EDT Patient is not fasting Patient's primary care provider is: ??N/A Testing performed at: [facility], [address] [place] [address], [address], Rope Tow Operator: Silvia E. Houston M.D. us Quang Arauz MD LAB SAME DAY RESULT Final Resu lt [facility] [address] [place] [address] DIRECTOR SILVIA HOUSTON M.D. * FELIZ SCREEN [...] for interpretation of all antibodies in the [place], prevalence, and association with diseases at [email or web address]/ [email or web address] 01/18/2017 10:3 6 AM EDT 01/18/2017 1:52 PM EDT Narrative Resulting Agency Comment [id number] Quang Arauz MD LABORATORY Final Result Performing Organization Address [facility] Co de Phone Number [facility] [address] [place] [address] * CYCLIC CITRULLINATEDPEPTIDE CCP AB IGG (01/18/2017 10:36 AM EDT) Pathologist [facility] CCP Ab, IgG <16 UNITS [facility] Comment: Reference Range Negative: ?<20 Weak Positive: ? 20-39 Moderate Positive: ?? 40-59 Strong Positive: ? >59 01/18/2017 10:3 6 AM EDT 01/18/2017 1:52 PM EDT Narrative Resulting Agency Comment [id number] Quang Arauz MD LABORATORY Final Result Performing Organization Address City/[facility]/ZIP Co de Phone Number [facility] [address] [place] [address] * RHEUMATOID FACTOR, SERUM (01/18/2017 10:36 AM EDT) Pathologist [facility] Rheumatoid Factor (Quant) 8 <14 IU/mL [facility] 01/18/2017 10:3 6 AM EDT 01/18/2017 1:52 PM EDT Narrative Resulting Agency Comment [id number] Quang Arauz MD LABORATORY Final Result [facility] [address] [place] [address] * BORRELIA BURGDORFERI AB (LYME), EIA WITH [...] 1:52 PM EDT Narrative Resulting Agency Comment [id number] us Quang Arauz MD LABORATORY Final Result Performing Organization Address City/[facility] Co de Phone Number [facility] [address] [place] [address] * C-REACTIVE PROTEIN (CRP) - INFLAMMATION (01/18/2017 10:36 AM EDT) C reactive protein 0.15 <0.80 mg/dL [facility] Comment: Please be advised that patients taking Carboxypenicillins may exhibit falsely decreased C-Reactive Protein levels due to an analytical interference in this assay. 01/18/2017 10:3 6 AM EDT 01/18/2017 1:52 PM EDT Narrative Resulting Agency Comment [id number] Quang Arauz MD LABORATORY Final Result Performing Organization Address [facility] Co de Phone Number [facility] [address] [place] [address] documented in this encounter Visit Diagnoses Diagnosis Arthralgia, unspecified joint documented in this encounter Additional Health Concerns Infection Onset Date Last Indicated Resolved Time COVID-19 Rule-Out 01/18/2021 01/18/2021 01/19/2021 11:08 AM EDT documented as of this encounter Care Teams Music Journalist Relationship Specialty Start Date End Date Quang Arauz MD [address] [place] [address] PCP - General Internal Medicine 10/04/16 06/22/17 Breann Eugene MD [address] [place] [address] PCP - General Family Medicine 06/23/17 07/04/21 Unknown Pcp, Non Rmg PCP - General 07/05/21 03/10/22 documented as of this encounter
--- OUTSIDE RECORDS SUMMARY | 2024-09-26 06:50 | XMS_ITS | Encounter Summary ---
Author Organization [facility] Address [address] [place] [address] Care Team Providers Care Assistant Business Manager Name Role Phone Unavailable Primary Care Provider Unavailabl e Reason for Visit * Reason Comments Follow Up Encounter Details Date Type Department Care Team (Late st Contact Info) Description 08/07/2022 Telephone [facility] [address] [address] Carolin Holloway, RN [address] [place] [phone] Follow Up Social History Tobacco Use Types [...]
--- OUTSIDE RECORDS SUMMARY | 2024-09-26 06:51 | XMS_ITS | Encounter Summary ---
Author Organization [facility] Address [address] [place] [address] Care Team Providers Care Supervisor Metal Hanging Name Role Phone Jose R Arauz Primary Care Provider [phone] Quang Arauz MD Primary Care Provider [phone] Breann Eugene MD Primary Care Provider Unavailab le Unknown Pcp, Non Rmg Primary Care Provider Unava ilable Encounter Details Date Type Department Care Team (Late st Contact Info) Description 09/29/2016 Orders Only [address] [address] Breann Eugene MD Social History Tobacco Use [...] of this encounter Procedures * Due to [place] state law, this organization might not be [...] in this encounter Results * Due to [place] state law, this organization might not be [...] GROUP PLT 264 140 - 400 K/uL [facility] 09/29/2016 9:39 AM EDT 09/29/2016 9:39 AM EDT Narrative [facility] - 09/29/2016 11:08 AM EDT fasting Patient's primary care provider is: ??N/A Testing performed at: [facility], [address] [place] [address], [address], Sat Instructor: Silvia Houston M.D. Breann Eugene MD LAB SAME DAY RESULT Final Result [address] [address] DIRECTOR SILVIA HOUSTON M.D. * BASIC METABOLIC PANEL WITH (GFR) (09/29/2016 9:39 AM EDT) Glucose 92 65 - 99 mg/dl [facility] Urea Nitrogen Blood (BUN) 9 7 - 25 mg/dL [facility] Creatinine 0.81 0.50 - 1.16 mg/dL [facility] Sodium 139 136 - 145 mmo/L [facility] Potassium 4.6 3.5 - 5.3 mmol/L [facility] Chloride 103 98 - 107 mmo/L [facility] Carbon dioxide 25 23 - 33 mmol/L [facility] Calcium 8.9 8.5 - 10.4 mg/dL [facility] GFR 84 >60 ml/min [facility] Comment:If the patient is Af rican Icelandic, please multiply result by 1.210 09/29/2016 9:39 AM EDT 09/29/2016 9:39 AM EDT Narrative [facility] - 09/29/2016 11:35 AM EDT fasting Patient's primary care provider is: ??N/A Testing performed at: [facility], [address] [place] [address], [address], Sat Instructor: Silvia Houston M.D. Breann Eugene MD LABORATORY Final Result [address] [address] DIRECTOR SILVIA HOUSTON M.D. * (ABNORMAL) LIPID [...] AM EDT 09/29/2016 9:39 AM EDT Narrative [facility] - 09/29/2016 11:35 AM EDT fasting Patient's primary care provider is: ??N/A Testing performed at: [facility], [address] [place] [address], [address], Sat Instructor: Silvia Houston M.D. Breann Eugene MD LABORATORY Final Result [facility] [address] [place] [address] DIRECTOR SILVIA HOUSTON M.D. documented in this encounter Visit Diagnoses Diagnosis Lipid screening Screening for lipoid disorders Routine history and physical examination of adult Routine general medical examination at a health care facility documented in this encounter Additional Health Concerns Infection Onset Date Last Indicated Resolved Time COVID-19 Rule-Out 01/18/2021 01/18/2021 01/19/2021 11:08 AM EDT documented as of this encounter Care Teams Supervisor Metal Hanging Relationship Specialty Start Date End Date Jose R Arauz [address] [address] PCP - General Internal Medicine 08/01/16 10/03/16 Quang Arauz MD [address] [place] [address] PCP - General Internal Medicine 10/04/16 06/22/17 Breann Eugene MD [address] [place] [address] PCP - General Family Medicine 06/23/17 07/04/21 Unknown Pcp, Non Rmg PCP - General 07/05/21 03/10/22 documented as of this encounter
--- OUTSIDE RECORDS SUMMARY | 2024-09-26 06:51 | XMS_ITS | Encounter Summary ---
Author Organization [facility] Address [address] [place] [address] Care Team Providers Care Boatbuilder Wood Name Role Phone Breann Eugene MD Primary Care Provider Unavailab le Unknown Pcp, Non Rmg Primary Care Provider Unava ilable Reason for Visit * Reason Comments Mammogram Encounter Details Date Type Department Care Team (Late st Contact Info) Description 04/15/2019 Telephone [facility] Adult Medicine [address] [place] [phone] Breann Eugene MD Mammogram Social History [...] documented as of this encounter Care Teams Boatbuilder Wood Relationship Specialty Start Date End Date Breann Eugene MD PCP - General Family Medicine 06/23/17 07/04/21 Unknown Pcp, Non Rmg PCP - General 07/05/21 03/10/22 documented as of this encounter
--- OUTSIDE RECORDS SUMMARY | 2024-09-26 06:51 | XMS_ITS | Encounter Summary ---
Author Organization [facility] Address [address] [place] [address] Care Team Providers Care Air Hoist Operator Name Role Phone Jose R Arauz Primary Care Provider [phone] Quang Arauz MD Primary Care Provider [phone] Breann Eugene MD Primary Care Provider Unavailab le Unknown Pcp, Non Rmg Primary Care Provider Unava ilable Encounter Details Date Type Department Care Team (Late st Contact Info) Description 08/11/2016 Orders Only [address] [address] Breann Eugene MD Social History Tobacco Use [...] of this encounter Procedures * Due to [place] [employer] law, this organization might not be sharing negative HIV tests. Procedure Name Priority Date/Time Associated Diagnosis Comments HCG, (HUMAN CHORIONIC GONADOTROPIN), URINE, QUALITATIVE (SITE - STAT ONLY) STAT (All results called to provider) 08/11/2016 8:38 AM EDT Amenorrhea documented in this encounter Results * Due to [place] [employer] law, this organization might not be sharing negative HIV tests. * HCG, (HUMAN CHORIONIC GONADOTROPIN), URINE, QUALITATIVE (SITE - STAT ONLY) (08/11/2016 8:38 AM EDT) HCG, Qualitative, Urine Negative Negative [facility] 08/11/2016 8:38 AM EDT 08/11/2016 8:38 AM EDT Narrative [facility] - 08/11/2016 8:46 AM EDT Please print and deliver results to human resources trainer as soon as possible. Patient's primary care provider is: ??N/A Testing performed at: [facility], [address] [place] [address], [address], Polysomnograph Tech: Silvia Houston M.D. Breann Eugene MD LAB SAME DAY RESULT Final Result [address] [address] DIRECTOR SILVIA HOUSTON M.D. documented in this encounter Visit Diagnoses Diagnosis Amenorrhea Absence of menstruation documented in this encounter Additional Health Concerns Infection Onset Date Last Indicated Resolved Time COVID-19 Rule-Out 01/18/2021 01/18/2021 01/19/2021 11:08 AM EDT documented as of this encounter Care Teams Air Hoist Operator Relationship Specialty Start Date End Date Jose R Arauz [address] [address] PCP - General Internal Medicine 08/01/16 10/03/16 Quang Arauz MD [address] [place] [address] PCP - General Internal Medicine 10/04/16 06/22/17 Breann Eugene MD [address] [place] [address] PCP - General Family Medicine 06/23/17 07/04/21 Unknown Pcp, Non Rmg PCP - General 07/05/21 03/10/22 documented as of this encounter
--- OUTSIDE RECORDS SUMMARY | 2024-09-26 06:51 | XMS_ITS | Encounter Summary ---
Author Organization [facility] Address [address] [place] [address] Care Team Providers Care Supply Chain Buyer Name Role Phone Jose R Arauz Primary Care Provider [phone] Quang Arauz MD Primary Care Provider [phone] Breann Eugene MD Primary Care Provider Unavailab le Unknown Pcp, Non Rmg Primary Care Provider Unava ilable Encounter Details Date Type Department Care Team (Late st Contact Info) Description 09/22/2016 Abstract [facility] Medical Records [address] [place] [address] Jose R Arauz [address] [address] Social History Tobacco Use Types Packs/Day Years [...] documented as of this encounter Care Teams Supply Chain Buyer Relationship Specialty Start Date End Date Jose R Arauz [address] [address] PCP - General Internal Medicine 08/01/16 10/03/16 Quang Arauz MD [address] [place] [address] PCP - General Internal Medicine 10/04/16 06/22/17 Breann Eugene MD [address] [place] [address] PCP - General Family Medicine 06/23/17 07/04/21 Unknown Pcp, Non Rmg PCP - General 07/05/21 03/10/22 documented as of this encounter
--- OUTSIDE RECORDS SUMMARY | 2024-09-26 06:51 | XMS_ITS | Encounter Summary ---
Author Organization [facility] Address [address] [place] [address] Care Team Providers Care Welding Machine Operator Plasma Arc Name Role Phone Breann Eugene MD Primary Care Provider Unavailab le Unknown Pcp, Non Rmg Primary Care Provider Unava ilable Encounter Details Date Type Department Care Team (Late st Contact Info) Description 03/12/2018 Orders Only [facility] Adult Medicine [address] [place] [phone] Shahana Fraser NP Medications Social History [...] this encounter Procedures * Due to [place] state law, this organization might not be [...] this encounter Results * Due to [place] state law, this organization might not be sharing negative HIV tests. * (ABNORMAL) CULTURE, URINE, ROUTINE (03/12/2018 3:16 PM EDT) [place] count (Urine) >10,000-<50,00 0 CFU/ml [facility] Bacteria culture (Urine) Mixed Culture, 3 or more organisms present. Repeat if Clinically Indicated.(A) No Growth [facility] 03/12/2018 3:16 PM EDT 03/12/2018 3:16 PM EDT Narrative [facility] - 03/14/2018 8:53 AM EDT Patient's primary care provider is: ??N/A Testing performed at: [facility], [address] [place] [address], [id number], Youth Nutritional Monitor: Jose R Sierra MD Shahana Fraser NP LABORATORY Final Result Performing Organization Address [facility] de Phone Number [address] [address] DIRECTOR Jose R Sierra MD * (ABNORMAL) [...] PM EDT 03/12/2018 3:16 PM EDT Narrative [facility] - 03/12/2018 3:54 PM EDT Patient's primary care provider is: ??N/A Testing performed at: [facility], [address] [place] [address], [id number], Youth Nutritional Monitor: Jose R Sierra MD Shahana Fraser NP LABORATORY Final Result Performing Organization Address [facility] de Phone Number [address] [address] DIRECTOR Jose R Sierra MD * STREP GROUP A AG, RAPID, WITHOUT REFLEX (OBTAIN IN [facility] ONLY!!!) (03/12/2018 3:16 PM EDT) Streptococcus pyogenes Ag (Throat) Negative for Gr A NEG FOR GR. A STREP [facility] 03/12/2018 3:16 PM EDT 03/12/2018 3:16 PM EDT Narrative [facility] - 03/12/2018 3:35 PM EDT GRP A CULTURE, ??SPECIMEN SOURCE: ??THROAT Patient's primary care provider is: ??N/A Testing performed at: [facility], [address] [place] [address], [id number], Youth Nutritional Monitor: Jose R Sierra MD hSahana Fraser LAPIDARIST LAB SAME DAY RESULT Final Resul t [address] [address] DIRECTOR Jose R Sierra MD * (ABNORMAL) [...] care provider is: ??N/A Testing performed at: [facility], [address] [place] [address], [address], Youth Nutritional Monitor: Jose R Sierra MD us Shahana Fraser LAPIDARIST LABORATORY Final Result Performing Organization Address [facility] Co de Phone Number [address] [address] DIRECTOR Jose R Sierra MD * (ABNORMAL) ERYTHROCYTE SEDIMENTATION RATE (ESR), [place] (03/12/2018 3:16 PM EDT) Sedimentation Rate [place] (ESR) 23(H) 0 - 20 mm/hr [facility] 03/12/2018 3:16 PM EDT 03/12/2018 3:16 PM EDT Narrative [facility] - 03/12/2018 5:50 PM EDT Patient's primary care provider is: ??N/A Testing performed at: [facility], [address] [place] [address], [id number], Youth Nutritional Monitor: Jose R Sierra MD us Shahana Fraser NP LAB SAME DAY RESULT Final Resul t Performing Organization Address [facility] de Phone Number [address] [address] DIRECTOR Jose R Sierra MD * MONONUCLEOSIS SCREEN (HETEROPHILE) (03/12/2018 3:16 PM EDT) MONOTEST Negative Negative [facility] 03/12/2018 3:16 PM EDT 03/12/2018 3:16 PM EDT Narrative [facility] - 03/12/2018 3:56 PM EDT Patient's primary care provider is: ??N/A Testing performed at: [facility], [address] [place] [address], [address], Youth Nutritional Monitor: Jose R Sierra MD us Shahana Fraser LAPIDARIST LAB SAME DAY RESULT Final Resul t Performing Organization Address [facility] Co de Phone Number [address] [address] DIRECTOR Jose R Sierra MD * HEPATIC FUNCTION PANEL (ALT,AST,ALK PH,BILI'S,TP,ALB) (03/12/2018 3:16 PM EDT) Albumin 4.5 3.5 - 5.2 g/dL [facility] Bilirubin Total 0.27 0.00 - 1.20 mg/dL [facility] Bilirubin Direct <0.20 0.00 - 0.30 mg/dL [facility] Alkaline phosphatase 62 33 - 130 U/L [facility] AST (SGOT) 13 <38 U/L [facility] ALT (SGPT) 12 <47 U/L [facility] Protein Total (Serum) 7.3 6.0 - 8.3 g/dL [facility] Globulin 3 2 - 4 G/DL [facility] 03/12/2018 3:16 PM EDT 03/12/2018 3:16 PM EDT [facility] - 03/12/2018 5:09 PM EDT Patient's primary care provider is: ??N/A Testing performed at: [facility], [address] [place] [address], [address], Youth Nutritional Monitor: Jose R Sierra MD Shahana Fraser NP LABORATORY Final Result Performing Organization Address [facility]/State/ZIP Co de Phone Number [address] [address] DIRECTOR Jose R Sierra MD * (ABNORMAL) C-REACTIVE PROTEIN (CRP) - INFLAMMATION (03/12/2018 3:16 PM EDT) C reactive protein 29.5(H) 0.0 - 8.0 mg/L [facility] 03/12/2018 3:16 PM EDT 03/12/2018 3:16 PM EDT [facility] - 03/12/2018 5:09 PM EDT Patient's primary care provider is: ??N/A Testing performed at: [facility], [address] [place] [address], [address], Youth Nutritional Monitor: Jose R Sierra MD Shahana Fraser NP LABORATORY Final Result Performing Organization Address [facility] de Phone Number [address] [address] DIRECTOR Jose R Sierra MD * STREPTOCOCCUS, GROUP A CULTURE (03/12/2018 3:16 PM EDT) Streptococcus pyogenes (Group A) Negative for Gr A NEG FOR GR. A STREP [facility] 03/12/2018 3:16 PM EDT 03/12/2018 3:16 PM EDT Narrative [facility] - 03/14/2018 8:57 AM EDT GRP A CULTURE, ??SPECIMEN SOURCE: ??THROAT Patient's primary care provider is: ??N/A Testing performed at: [facility], [address] [place] [address], [address], Youth Nutritional Monitor: Jose R Sierra MD Shahana Fraser NP LABORATORY Final Result Performing Organization Address [facility] de Phone Number [address] [address] DIRECTOR Jose R Sierra MD * (ABNORMAL) CBC INCLUDES DIFFERENTIAL AND PLATELET COUNT (03/12/2018 3:16 PM EDT) WBC 6.7 3.8 - 10.8 K/uL [facility] Neutrophils # 5.1 1.5 - 7.8 K/uL [facility] Immature Granulocytes # 0.01 0.00 - 0.07 K/uL [facility] Comment:Cells included in IM M GRANS # : Metamyelocytes, Myelocytes and Promyelocytes. Lymphocytes # 0.8(L) 0.9 - 3.9 K/uL [facility] Monocytes # 0.6 0.2 - [...] PM EDT 03/12/2018 3:16 PM EDT Narrative [facility] - 03/12/2018 3:49 PM EDT Patient's primary care provider is: ??N/A Testing performed at: [facility], [address] [place] [address], [address], Youth Nutritional Monitor: Jose R Sierra MD us Shahana Fraser NP LAB SAME DAY RESULT Final Resul t [address] [address] DIRECTOR Jose R Sierra MD * (ABNORMAL) BASIC METABOLIC PANEL WITH (GFR) (03/12/2018 3:16 PM EDT) Glucose 110(H) 65 - 99 mg/dl [facility] Urea Nitrogen Blood (BUN) 12 7 - 25 mg/dL [facility] Creatinine 0.92 0.50 - 1.16 mg/dL [facility] Sodium 140 136 - 145 mmo/L [facility] Potassium 4.1 3.5 - 5.3 mmol/L [facility] Chloride 101 98 - 107 mmo/L [facility] Carbon dioxide 28 23 - 33 mmol/L [facility] Calcium 9.3 8.5 - 10.4 mg/dL [facility] GFR 72 >60 ml/min [facility] Comment:If the patient is Af rican [place], please multiply result by 1.210 03/12/2018 3:16 PM EDT 03/12/2018 3:16 PM EDT Narrative [facility] - 03/12/2018 5:09 PM EDT Patient's primary care provider is: ??N/A Testing performed at: [facility], [address] [place] [address], [address], Youth Nutritional Monitor: Jose R Sierra MD Shahana Fraser NP LABORATORY Final Result Performing Organization Address [facility]/State/ZIP Co de Phone Number [address] [address] DIRECTOR Jose R Sierra MD * [place] [...] 11:42 PM EDT Narrative Resulting Agency Comment [id number] Shahana Fraser NP LABORATORY Final Result Performing Organization Address City/State/[facility] Co de Phone Number [facility] [address] [place] [address] documented in this encounter Visit Diagnoses Diagnosis Fever, unspecified fever cause documented in this encounter Additional Health Concerns Infection Onset Date Last Indicated Resolved Time COVID-19 Rule-Out 01/18/2021 01/18/2021 01/19/2021 11:08 AM EDT documented as of this encounter Care Teams Welding Machine Operator Plasma Arc Relationship Specialty Start Date End Date Breann Eugene MD PCP - General Family Medicine 06/23/17 07/04/21 Unknown Pcp, Non [facility] PCP - General 07/05/21 03/10/22 documented as of this encounter
--- OUTSIDE RECORDS SUMMARY | 2024-09-26 06:51 | XMS_ITS | Encounter Summary ---
Author Organization [facility] Address [address] [place] [address] Care Team Providers Care It Support Specialist Name Role Phone Breann Eugene MD Primary Care Provider Unavailab le Unknown Pcp, Non Rmg Primary Care Provider Unava ilable Reason for Visit * Reason Comments Neck Pain Encounter Details Date Type Department Care Team (Late st Contact Info) Description 04/15/2019 Telephone [facility] Adult Medicine [address] [place] [phone] Breann Eugene MD Neck Pain Social [...] documented as of this encounter Care Teams It Support Specialist Relationship Specialty Start Date End Date Breann Eugene MD PCP - General Family Medicine 06/23/17 07/04/21 Unknown Pcp, Non Rmg PCP - General 07/05/21 03/10/22 documented as of this encounter
== END 2024-09-26 06:48 | disposition home or self-care (01) ==
LOC: HO.UMASIMG 06:47
PROVIDERS: Visit Provider Family Medicine
DX: N92.4 Excessive bleeding in the premenopausal period (principal)
CPT/HCPCS: 76830; 76856

== ENCOUNTER → 2024-09-26 13:30 | Outpatient (BNV) | payer OTHER, SELFPAY | PROVIDERS: Visit Provider Radiology Diagnostic Radiology | DX: D25.9 Leiomyoma of uterus, unspecified (principal) | CPT/HCPCS: 76830; 76856 ==

== ENCOUNTER 2024-10-22 08:24 | Outpatient (REF) | payer OTHER, SELFPAY ==
--- NOTE | ~2024-10-22 | US_ITS ---
CLINICAL HISTORY: LUMP LEFT PREAURICAL AREA, ? CYST, LN Ultrasound of the soft tissues of the left periauricular region COMPARISON: None FINDINGS: Dedicated ultrasound imaging was performed over the region of concern along the left periauricular region. In the region of concern there is a heterogeneous hypoechoic subcutaneous nodule measuring 0.7 x 0.4 x 0.4 cm. There is mildly increased through transmission No surrounding hyperemia or internal vascularity. No definite communication with the overlying skin. IMPRESSION: 1. Indeterminate heterogeneous hypoechoic avascular nodule in the left periauricular region measuring up to 0.7 cm. This could represent sebaceous cyst or atypical lymph node. This document has been electronically signed by: Bar Aguilar MD on 10/22/2024 15:19:04
== END 2024-10-22 08:25 | disposition home or self-care (01) ==
LOC: HO.UMASIMG 08:24
PROVIDERS: Visit Provider Physician Assistant
DX: L72.0 Epidermal cyst (principal)
CPT/HCPCS: 76536

== ENCOUNTER → 2024-10-22 10:00 | Outpatient (BNV) | payer OTHER, SELFPAY | PROVIDERS: Visit Provider Radiology Diagnostic Radiology | DX: R22.1 Localized swelling, mass and lump, neck (principal) | CPT/HCPCS: 76536 ==